=== PATIENT | female | born 2000 | race Caucasian/White ===

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

== ENCOUNTER 2020-06-07 06:32 | Emergency (ER) | payer OTHER, SELFPAY ==
[2020-06-07 06:36] VITALS: BP 156/93; PULSE 89; RESP 16; TEMP 36.3; O2SAT 98; BMI 36.3
--- NOTE | 2020-06-07 06:47 | XR_ITS ---
PROCEDURE: XR CHEST 2V CLINICAL HISTORY: cough COMPARISON: CR CXR CHEST(2 VIEWS-NOT PORTABLE) from 01/30/2010 CR CXR CHEST(2 VIEWS-NOT PORTABLE) from 12/25/2011 CR XR CHEST 2V from 05/11/[address] ANGIO CHEST from 05/17/2019 FINDINGS: The cardiomediastinal silhouette and pulmonary vascularity are within normal limits. The lungs are clear without infiltrates, suspicious nodules, or pleural effusions. No acute bony abnormalities. IMPRESSION: No acute findings. Dictated by: Dr. Sylvain Bustamante MD 06/07/2020 07:47 Dr. Sylvain Bustamante MD in [place] 06/07/2020 07:47
[2020-06-07 07:03] LABS: Microscopic, Urine URINE MICROSCOPIC (MICROSCOPIC)
[2020-06-07 07:12] LABS: Urine Pregnancy, HCG Qual. Negative (Negative)
[2020-06-07 07:14] LABS: Strep Scrn Group A (Rapid) Negative (Negative)
--- NOTE | 2020-06-07 07:17 | HMH.EDHA ---
ED Disposition Clinical Impression: Bronchitis Disposition: Home, Self-Care Condition on Discharge: Good Instructions: DI for Headache Additional Instructions: fluids and use meds and see pcp for follow up Prescriptions: predniSONE [Prednisone 20mg Tab] 20 mg PO BID #10 tab Transmission Status: Pending to [facility] Benzonatate [Tessalon Perle 100mg Cap] 100 mg PO TID #30 cap Transmission Status: Pending to [facility] Azithromycin [Zithromax 250mg tab] 250 mg PO DIRECTED #6 tab Transmission Status: P[facility] Referrals: Andrews De La Garza [Primary Care Provider] - - Critical Care Critical Care Time: No Attestation: On 06/07/20, the high probability of a clinically significant, sudden or life threatening deterioration of the following system(s) required my full and direct attention, intervention and personal management. The time I documented below is in addition to time spent performing reported procedures but includes the following listed in this critical care notation. Medical Decision Making - Medical Records Medical records reviewed: Yes: I reviewed the patient's medical records. - Kwan Inquiry Pt receiving controlled substance: No Vital Signs: 06/07/20 06:36 Temperature 97.4 F L Temperature Source Temporal Artery Scan Pulse Rate [Right Brachial] 89 Respiratory Rate 16 Blood Pressure [Right Arm] 156/93 H Blood Pressure Mean [Right Arm] 114 Blood Pressure Source [Right Arm] Automatic Cuff 02 Sat by Pulse Oximetry 98 Oxygen Delivery Method Room Air - Lab Data Lab results reviewed: Yes: I reviewed the patient's lab results. Lab Results 06/07/20 06:44: Urine Color Yellow, Urine Appearance Clear, Urine pH 7.0, Ur Specific [place] 1.020, Urine Protein Negative, Urine Glucose (UA) Negative, Urine Ketones Negative, Urine Blood Negative, Urine Nitrate Negative, Urine Bilirubin Negative, Urine Urobilinogen 0.2, Ur Leukocyte Esterase Negative, Urine RBC Occasional, Urine WBC 3-5, Ur Squamous Epith Cells 10-20, Urine Bacteria 2+ 06/07/20 06:44: Urine HCG, Qual Negative 06/07/20 06:44: Influenza Type A Ag Negative, Influenza Type B Ag Negative 06/07/20 06:44: Group A Strep Rapid Negative Orders (Tests/Meds): ED MEDICATIONS Generic Name Dose Route Start Last Admin Trade Name Freq PRN Reason Stop Dose Admin Sodium Chloride 1,000 mls @ 999 mls/hr 06/07/20 07:30 06/07/20 07:21 Sod Chlor 0.9% 1000ml Bag IV 06/07/20 08:30 999 mls/hr .Q1H1M JOSH Administration Discontinued Medications Generic Name Dose Route Start Last Admin Trade Name Veronica PRN Reason Stop Dose Admin Ketorolac Tromethamine 30 mg 06/07/20 07:19 06/07/20 07:21 Ketorolac 30mg/Ml Vial IV 06/07/20 07:20 30 mg ONCE ONE Administration Methylprednisolone Sodium Succinate 125 mg 06/07/20 07:19 06/07/20 07:21 Methylprednisolone Sod Succ 125mg Vial IV 06/07/20 07:20 125 mg ONCE ONE Administration ORDERS Category Date Time Status XR chest 2V Stat Exams 06/07/20 06:47 Taken CMP [Comprehensive Metabolic Panel] Stat Lab 06/07/20 07:29 Ordered Complete Blood Count Auto Diff Stat Lab 06/07/20 07:29 Ordered Strep Screen Confirmation Stat Micro 06/07/20 06:44 Received Urine Culture Stat Micro 06/07/20 06:44 Received - Radiology Data #1 Image(s): Chest Image Reviewed: Yes I reviewed the patient's radiology image Preliminary Findings: Normal/NAD Headache HPI - General Chief Complaint: Headache Stated Complaint: sore throat, cough, head hurts Time Seen by Provider: 06/07/20 07:00 Mode of Arrival: Ambulatory Source of Information: Patient, Medical Record Limitations: No Limitations Description of Symptoms (Recalled from ER Triage Doc. by RN): cough, sore throat, fever, doesn't feel well , headache since last night - History of Present Illness HPI Narrative: echocardiologist cough and sore throat with no known covid-19 exposure Complaint: h
[2020-06-07 07:27] LABS: Bacteria,Urine 2+ /lpf; RBC,Urine Occasional #/hpf (0-3)
[2020-06-07 07:28] LABS: Appearance,Urine CLEAR (Clear); Bilirubin,Urine Negative (Negative); Blood, Urine Negative (Negative); Color,Urine YELLOW (Yellow); Glucose,Urine (UA) Negative (Negative); Ketones,Urine Negative (Negative); Leukocyte Esterase,Urine Negative (Negative); Nitrate,Urine Negative (Negative); Protein,Urine Negative (Negative); Urobilinogen,Urine 0.2 EU/dl (0.2)
[2020-06-07 07:33] VITALS: BP 144/87; PULSE 93; O2SAT 96
[2020-06-07 07:38] LABS: Basophils # 0.1 K/mm3 (0-0.2); Basophils % 0.5 % (0.1-2.0); Eosinophils # 0.3 K/mm3 (0.0-0.4); Eosinophils % 2.9 % (0.1-12.0); Hematocrit 40.3 % (37.0-47.0); Hemoglobin 13.5 g/dL (12.2-16.2); Lymphocytes # 2.7 K/mm3 (0.7-4.5); Lymphocytes % 26.5 % (10-50); Mean Corpuscular HGB Conc 33.6 g/dL (31.8-35.4); Mean Corpuscular Hemoglobin 29.1 pg (27.0-31.2); Mean Corpuscular Volume 86.7 fl (81-99); Mean Platelet Volume 7.7 fl (7.4-10.4); Monocytes # 0.6 K/mm3 (0.1-1.0); Monocytes % 6.3 % (1.7-9.3); Neutrophils # 6.4 K/mm3 (1.8-7.8); Neutrophils % 63.8 % (37.0-80.0); Platelet Count 355 K/mm3 (142-424); Red Blood Count 4.65 M/mm3 (4.20-5.40); Red Cell Distribution Width 13.4 % (11.5-17.5); White Blood Count 10.1 K/mm3 (4.5-13.0)
[2020-06-07 07:41] VITALS: BP 148/88; PULSE 82; RESP 17; TEMP 36.6; O2SAT 96
[2020-06-07 07:41] LABS: Chloride 102 mmol/L (98-107); Potassium 3.8 mmoL/L (3.5-5.1); Sodium 139 mmol/L (136-145)
[2020-06-07 07:43] LABS: Alanine Aminotransferase 21 U/L (12-78); Aspartate Amino Transferase 23 U/L (14-36); Blood Urea Nitrogen 15 mg/dl (7-17); Creatinine Clearance Estimated 208 mL/min (50-200); Estimated Glomerular Filt Rate 108 ml/min (>60); GFR (African American) 130 ML/MIN (>60)
[2020-06-07 07:44] LABS: Albumin Level 4.5 g/dl (3.5-5.0); Albumin/Globulin Ratio 1.3 (1.1-1.8); Alkaline Phosphatase 85 U/L (38-126); Anion Gap 13.8 mEq/L (5-15); Bilirubin,Total 0.2 mg/dl (0.2-1.3); Calcium 9.7 mg/dl (8.4-10.2); Carbon Dioxide 27 mmol/L (22.0-30.0); Globulin 3.4 g/dL (1.3-3.2); Glucose 97 mg/dl (74-100); Total Protein,Serum 7.9 g/dl (6.3-8.2)
== END 2020-06-07 07:47 | disposition home or self-care (01) ==
PROVIDERS: Emergency Provider Emergency Medicine; PCP Internal Medicine
DX: J20.9 Acute bronchitis, unspecified (principal); F17.210 Nicotine dependence, cigarettes, uncomplicated
CPT/HCPCS: 71046; 80053; 81001; 81025; 85025; 87086; 87275; 87276; 87430; 96365; 99284

== ENCOUNTER 2022-02-05 13:50 | Inpatient (IN) | payer OTHER, SELFPAY ==
[2022-02-05 13:27] VITALS: BP 167/87; PULSE 108; RESP 22; TEMP 37.1; O2SAT 98; BMI 37.8
--- NOTE | 2022-02-05 14:23 | HMH.HP ---
*Admission Date: 02/05/22 *Chief complaint: Painful contractions, vaginal pressure, leakage of fluid *History of present illness: Ms Barbara Alcantara is a 21 yo at 34w4d per patient. Patient states her EMERALD is 03/15/22. She states she had 3 visits this . Two with Dr. Henriquez and one in [place]. However, we have no record of visits with Dr. Henriquez in the EMR. She states around [id number] she had sharp bilateral pelvic pain and then around 1255 she started leaking fluid. She reported cloudy fluid. She arrived to L&D and just made it to triage room when baby delivered at 1335. Baby did not show any signs of life and no pulse upon delivery. Baby was immediately taken to warmer for resuscitation. OB physician arrived. Fundal massage with gentle traction on umbilical cord was performed and placenta delivered spontaneously and intact. She was given IM Pitocin. Placenta will be sent to pathology for review. Placenta was stained with meconium, brown and green. Second degree perineal laceration was repaired with 3-0 vicryl. Hemostasis was noted. [facility] History I have reviewed the patient's past medical history: Yes *Have you ever received a pneumonia vaccine?: No *Have you received a flu vaccine this season?: No Other Surgeries: Yes: No Previous Surgery - *Social History Smoking Status: Current some day smoker Tobacco Type: cigarettes # Packs/Day (cigarettes): 1 Alcohol Intake: never Substance Use Type: denies use *Occupational Status:: other Housing: house Household Members: family *Travel in the last 8 weeks: None Family Hx:: No significant family history : 1 Para: 0 LMP comments: Review of Systems - Constitutional Denies fever(s), Denies headache(s) - Eyes Denies blurry vision, Denies change in vision - *Cardiovascular Denies chest pain, Denies shortness of breath, Denies leg swelling, Denies lightheadedness - *Respiratory Denies chest congestion, Denies cough, Denies shortness of breath - *Gastrointestinal Reports abdominal pain (cramping/contractions), Denies constipation, Denies loose stools, Denies nausea, Denies vomiting - *Genitourinary Reports other (leakage of fluid), Denies abnormal vaginal bleeding - *Musculoskeletal Denies muscle weakness, Denies body aches, Denies numbness - *Neurologic Denies dizziness, Denies headache(s) Meds Home Medications Medication Instructions Recorded Confirmed Type No Known Home Medications 02/05/22 02/05/22 History Allergies Allergy/AdvReac Type Severity Reaction Status Date / Time No Known Allergies Allergy Verified 03/23/19 13:13 Exam - Constitutional no acute distress, mild distress - *Routine HEENT Exam Head: Present: normocephalic, atraumatic Eye: Absent: conjunctivae pink ENT: Present: mucous membranes moist - *Routine Respiratory Exam Present: CTA bilaterally - *Routine Cardiovascular Exam Present: RRR - *Routine Abdominal Exam Present: soft. Absent: tenderness, distended - *Routine Rectal Exam Rectal:: deferred - *Routine Genitalia Exam Genitalia:: normal female - *Routine Extremities Exam Present: full ROM. Absent: edema, calf tenderness Assessment and Plan (1) Status: Acute Category: Medical Code(s): Z34.90 - Encounter for supervision of normal , unspecified, unspecified trimester (2) No care in current Status: Acute Category: Medical Code(s): O09.30 - Supervision of with insufficient care, unspecified trimester (3) Precipitous delivery Status: Acute Category: Medical Code(s): O62.3 - Precipitate labor (4) Delivery outcome of stillborn Status: Acute Category: Medical Code(s): Z37.1 - Single stillbirth - Assessment and plan all Dx Assessment and Plan for all problems:: Admit to L&D for routine care Prophylactic antibiotics x 24 hours Placenta will be sent to pathology
[2022-02-05 17:00] VITALS: BMI 37.8
[2022-02-05 18:21] LABS: Basophils # 0.1 K/mm3 (0-0.2); Basophils % 0.1 % (0.1-2.0); Eosinophils % 0.1 % (0.1-12.0); Hematocrit 31.1 % (37.0-47.0); Hemoglobin 10.5 g/dL (12.2-16.2); Lymphocytes # 0.7 K/mm3 (0.7-4.5); Lymphocytes % 1.7 % (10-50); Mean Corpuscular HGB Conc 33.6 g/dL (31.8-35.4); Mean Corpuscular Volume 83.3 fl (81-99); Mean Platelet Volume 8.1 fl (7.4-10.4); Monocytes # 1.3 K/mm3 (0.1-1.0); Monocytes % 3.5 % (1.7-9.3); Neutrophils % 94.5 % (37.0-80.0); Platelet Count 328 K/mm3 (142-424); Red Blood Count 3.74 M/mm3 (4.20-5.40); Red Cell Distribution Width 13.8 % (11.5-17.5)
[2022-02-05 18:24] LABS: MANUAL DIFFERENTIAL MANUAL DIFFERENTIAL (MANUAL DIFF)
[2022-02-05 19:26] LABS: Lymphocytes % 5 % (10-50); Monocytes % 2 % (2-9); Neutrophils % 92 % (42-76); Platelet Estimate Normal; RBC Morphology Normal; Total Cells Counted 100
[2022-02-05 20:00] VITALS: BP 144/95; PULSE 79; RESP 20; TEMP 36.9; O2SAT 98
[2022-02-05 22:23] LABS: Coronavirus 19, PCR Not Detected (NotDetected); Influenza A, PCR Not Detected (NotDetected); Influenza B, PCR Not Detected (NotDetected)
[2022-02-05 23:53] LABS: Microscopic, Urine URINE MICROSCOPIC (MICROSCOPIC)
[2022-02-05 23:57] LABS: Appearance,Urine CLEAR (Clear); Bilirubin,Urine Negative (Negative); Blood, Urine 3+ (Negative); Color,Urine YELLOW (Yellow); Glucose,Urine (UA) Negative (Negative); Ketones,Urine Negative (Negative); Leukocyte Esterase,Urine 2+ (Negative); Nitrate,Urine Negative (Negative); Protein,Urine TRACE (Negative); Specific Gravity, Urine <= 1.005 (1.005-1.030); Urobilinogen,Urine 0.2 EU/dl (0.2)
[2022-02-06] VITALS: BP 133/77; PULSE 95; RESP 18; TEMP 36.7; O2SAT 99
[2022-02-06 00:10] LABS: Barbiturates Screen,Urine Negative ng/ml (<200)
[2022-02-06 00:11] LABS: Amphetamine/Metha Screen,Urine Negative ng/ml (<1000); Benzodiazepines Screen,Urine Negative ng/ml (<200)
[2022-02-06 00:12] LABS: Cannabinoid Screen,Urine Negative ng/ml (<50)
[2022-02-06 00:13] LABS: Cocaine Screen,Urine Negative ng/ml (<300); Methadone Screen,Urine Negative ng/ml (<300)
[2022-02-06 00:14] LABS: Bacteria,Urine 1+ /lpf; Opiate Screen,Urine Negative ng/ml (<300)
[2022-02-06 00:15] LABS: Phencyclidine Screen,Urine Negative ng/ml (<25)
[2022-02-06 08:15] VITALS: BP 128/77; PULSE 84; RESP 18; TEMP 36.9; O2SAT 98
[2022-02-06 08:15] LABS: Basophils % 0.1 % (0.1-2.0); Eosinophils # 0.1 K/mm3 (0.0-0.4); Eosinophils % 0.4 % (0.1-12.0); Hematocrit 28.9 % (37.0-47.0); Lymphocytes # 2.4 K/mm3 (0.7-4.5); Lymphocytes % 7.5 % (10-50); Mean Corpuscular HGB Conc 34.5 g/dL (31.8-35.4); Mean Corpuscular Hemoglobin 27.7 pg (27.0-31.2); Mean Corpuscular Volume 80.3 fl (81-99); Mean Platelet Volume 7.1 fl (7.4-10.4); Monocytes # 1.3 K/mm3 (0.1-1.0); Neutrophils # 28.3 K/mm3 (1.8-7.8); Platelet Count 354 K/mm3 (142-424); Red Blood Count 3.59 M/mm3 (4.20-5.40); Red Cell Distribution Width 13.9 % (11.5-17.5); White Blood Count 32.1 K/mm3 (4.8-10.8)
[2022-02-06 08:16] LABS: MANUAL DIFFERENTIAL MANUAL DIFFERENTIAL (MANUAL DIFF)
[2022-02-06 10:15] LABS: Lymphocytes % 11 % (10-50); Monocytes % 2 % (2-9); Neutrophils % 86 % (42-76); Total Cells Counted 100
[2022-02-06 10:18] LABS: Platelet Estimate Normal; RBC Morphology Normal
--- NOTE | 2022-02-06 13:28 | HMH.OBDCSM ---
General - General Admission date:: 02/05/22 Discharge date: 02/06/22 HPI - History of Present Illness History of present illness: PPD # 1 s/p of stillborn baby Patient is doing okay. She admits to light lochia. Denies fever/chills, chest pain and shortness of breath. Denies pain. Denies headache, vision changes and swelling. She is sad and tearful. Hospital Course Hospital Course: Patient was admitted to [facility] Labor and Delivery on 02/05/22 after precipitous delivery upon arrival. She delivered a stillborn boy 8 lb 4 oz, APGARs were 0, 0. No cardiac activity. No signs of life upon delivery. EBL was 300 mL. Placenta delivered spontaneously and intact. Chorioamnionitis was suspected with malodorous fluid and thick brown/green meconium. Patient was treated with IV Unasyn for 24 hours after delivery. Vital signs were stable, afebrile. WBC was 37,000. PPD #1 She was doing okay. She was sad and tearful. Reported decreased lochia. She was urinating without difficulty. Passing flatus. Pain was controlled. She had no nausea, vomiting, fever/chills, chest pain or shortness of breath. Vitals were stable. Heart was regular rate and rhythm. Lungs were clear to auscultation. Abdomen was soft, nontender, uterine fundus firm and below umbilicus. Extremities were non-edematous and she had no calf tenderness to palpation. She was transitioned to oral antibiotics for 5 days. She was started on sertraline 50 mg PO daily. Patient desires discharge to home. Rhogam Administration: Not Indicated Objective Vital signs: Temp Pulse Resp BP Pulse Ox 98.5 F 84 18 128/77 98 02/06/22 08:15 02/06/22 08:15 02/06/22 08:15 02/06/22 08:15 02/06/22 08:15 Comments: tearful and sad - *Routine HEENT Exam Head: Present: normocephalic, atraumatic Eye: Absent: conjunctivae pink ENT: Present: mucous membranes moist - *Routine Respiratory Exam Present: CTA bilaterally - *Routine Cardiovascular Exam Present: RRR - *Routine Abdominal Exam Present: soft, normoactive bowel sounds. Absent: tenderness, distended - *Routine Rectal Exam Patient deferred: visual exam - *Routine Exam Patient deferred: external exam - *Routine Extremities Exam Present: full ROM. Absent: edema, calf tenderness - *Routine Neurological Exam Present: alert, oriented X3 Results Labs on day of discharge: Labs from last 24 hours 02/06/22 02/05/22 02/05/22 07:45 22:13 21:30 WBC 32.1 H* RBC 3.59 L Hgb 10.0 L Hct 28.9 L MCV 80.3 L MCH 27.7 MCHC 34.5 RDW 13.9 Plt Count 354 MPV 7.1 L Neut % (Auto) 88.0 H Lymph % (Auto) 7.5 L [place] % (Auto) 4.0 Eos % (Auto) 0.4 Baso % (Auto) 0.1 Neut # (Auto) 28.3 H Lymph # (Auto) 2.4 [place] # (Auto) 1.3 H Eos # (Auto) 0.1 Baso # (Auto) 0.0 Total Counted 100 Neutrophils % (Manual) 86 H Band Neutrophils % 1.0 Lymphocytes % (Manual) 11 Monocytes % (Manual) 2 Platelet Estimate Normal RBC Morphology Normal Urine Color Urine Appearance Urine pH Ur Specific [place] Urine Protein Urine Glucose (UA) Urine Ketones Urine Blood Urine Nitrate Urine Bilirubin Urine Urobilinogen Ur Leukocyte Esterase Urine RBC Urine WBC Ur Squamous Epith Cells Urine Bacteria Urine Opiates Screen Negative Urine Methadone Screen Negative Ur Barbituates Screen Negative Ur Phencyclidine Scrn Negative Ur Amphetamines Screen Negative U Benzodiazepines Scrn Negative Urine Cocaine Screen Negative U Marijuana (THC) Screen Negative SARS-CoV-2 (PCR) Not detected Influenza A Untype (PCR) Not detected Influenza Type B (PCR) Not detected Blood Type Antibody Screen Screen Baby's Rh Status Rhogam Infusion KB Hemoglobin 02/05/22 02/05/22 02/05/22 21:30 14:00 14:00 WBC 37.0 H* RBC 3.74 L Hgb 10.5 L Hct 31.1 L
== END 2022-02-06 14:50 | disposition home or self-care (01) | DRG 807 ==
LOC: OBOUT 02-21 10:16 → OB 02-21 10:16
PROVIDERS: Admitting Provider Obstetrics & Gynecology; PCP Internal Medicine; Visit Provider Obstetrics & Gynecology
DX: O36.4XX0 Maternal care for intrauterine death, not applicable or unspecified (principal); Z37.1 Single stillbirth; Z3A.34 34 weeks gestation of pregnancy; O70.1 Second degree perineal laceration during delivery; O69.1XX0 Labor and delivery complicated by cord around neck, with compression, not applicable or unspecified
CPT/HCPCS: 59409; 36415; 80305; 80306; 81001; 85007; 85025; 86850; 87086; 88307; C9803; U0003; U0005

== ENCOUNTER → 2022-02-08 14:33 | Outpatient (CLI) | payer OTHER, SELFPAY ==
[2022-02-08 15:13] LABS: Basophils # 0.1 K/mm3 (0-0.2); Basophils % 0.6 % (0.1-2.0); Eosinophils # 0.5 K/mm3 (0.0-0.4); Eosinophils % 3.1 % (0.1-12.0); Hematocrit 31.8 % (37.0-47.0); Lymphocytes # 2.1 K/mm3 (0.7-4.5); Lymphocytes % 13.7 % (10-50); Mean Corpuscular HGB Conc 31.3 g/dL (31.8-35.4); Mean Corpuscular Hemoglobin 27.1 pg (27.0-31.2); Mean Corpuscular Volume 86.7 fl (81-99); Mean Platelet Volume 7.7 fl (7.4-10.4); Monocytes # 0.6 K/mm3 (0.1-1.0); Neutrophils # 12.2 K/mm3 (1.8-7.8); Neutrophils % 78.6 % (37.0-80.0); Platelet Count 458 K/mm3 (142-424); Red Blood Count 3.67 M/mm3 (4.20-5.40); Red Cell Distribution Width 14.6 % (11.5-17.5); White Blood Count 15.6 K/mm3 (4.8-10.8)
[2022-02-08 15:17] LABS: MANUAL DIFFERENTIAL MANUAL DIFFERENTIAL (MANUAL DIFF)
[2022-02-08 16:23] LABS: Eosinophils % 3 % (0-3); Hypochromasia 1+; Lymphocytes % 17 % (10-50); Monocytes % 5 % (2-9); Neutrophils % 75 % (42-76); Total Cells Counted 100
[2022-02-08 16:25] LABS: Platelet Estimate Normal
== END ==
PROVIDERS: PCP Internal Medicine; Visit Provider Obstetrics & Gynecology
DX: N92.0 Excessive and frequent menstruation with regular cycle (principal)
CPT/HCPCS: 36415; 85007; 85025

== ENCOUNTER 2022-02-09 09:58 | Emergency (ER) | payer OTHER, SELFPAY ==
[2022-02-09 10:06] VITALS: BP 177/112; PULSE 72; RESP 18; TEMP 36.4; O2SAT 97; BMI 38.6
--- NOTE | 2022-02-09 10:15 | ECG_ITS ---
APPROVED REPORT Exam: Resting ECG HR:82 bpm ECG Measurements Heart Rate 82 AXES RI 147 P 53 QRSd 97 QRS 19 QT 350 T 20 QTc 389 Conclusion SINUS RHYTHM INCOMPLETE RIGHT BUNDLE BRANCH BLOCK [90+ ms QRS DURATION, TERMINAL R IN V1/V2, 40+ ms S IN I/aVL/V4/V5/V6] BORDERLINE ECG UNCONFIRMED REPORT Electronically signed by : Ry Jefferson MD 02/11/2022 21:33:24
--- NOTE | 2022-02-09 10:23 | HMH.EDUTC ---
[facility] [place] Disposition Clinical Impression: Hypertension Qualifiers: Hypertension type: unspecified Qualified Code(s): I10 - Essential (primary) hypertension Disposition: Home, Self-Care Condition on Discharge: Good Instructions: Essential Hypertension Additional Instructions: Take the medications as directed. Follow up with your regular doctor. GO TO THE ER FOR ANY WORSENING SYMPTOMS Go from sitting to standing slowly after starting the bisopropol. It can cause you to get dizzy when standing up until your body gets used to it. Prescriptions: Bisoprolol Fumarate [Bisoprolol 5mg Tablet] 5 mg PO DAILY #30 tab Transmission Status: Received by [facility] Referrals: Andrews De La Garza MD [Primary Care Provider] - Time of Disposition: 10:34 Medical Decision Making - Medical Records Medical records reviewed: No: I reviewed the patient's medical records. - Kwan Inquiry Pt receiving controlled substance: No Vital Signs: 02/09/22 10:06 02/09/22 10:41 Temperature 97.5 F L 97.5 F L Temperature Source Oral Pulse Rate 72 Pulse Rate [Left] 72 Respiratory Rate 18 18 Blood Pressure 177/112 H Blood Pressure [Right Arm] 177/112 H Blood Pressure Mean [Right Arm] 133 02 Sat by Pulse Oximetry 97 Orders (Tests/Meds): ED MEDICATIONS Discontinued Medications Generic Name Dose Route Start Last Admin Trade Name Freq PRN Reason Stop Dose Admin Bisoprolol Fumarate 5 mg 02/10/22 09:00 Bisoprolol 5mg Tablet PO 03/12/22 08:59 DAILY JOSH - ECG Data Tracing #1 ECG initial impression date: 02/09/22 ECG initial impression time: 10:48 ECG normal with no acute: arrhythmias, ischemia, conduction abnormalities, chamber hypertrophy Normal Sinus Rhythm: Yes [facility] [place] HPI - General Stated complaint: elevated bp Time Seen by Provider: 02/09/22 10:23 Description of Symptoms (Recalled from Triage Doc. by RN): patient comes in for a blood pressure check. when blood pressure checked it was 177/112. patient was asked to check in to be seen. patient had stillborn on 02/05. pt states that she has been having headaches for the past two days. HEENT Symptoms (Recalled from RN notes): No Resp Symptoms (Recalled from RN notes): No Skin Symptoms (Recalled from RN notes): No MS Symptoms (Recalled from RN notes): No Functional Status (Recalled from RN notes): wnl - History of Present Illness Provider Complaint: She has a history of hypertension. She has been up until having a still yesterday. During her her blood pressure did good without blood pressure medicine, so she has been off of it for a period of time. Since she had the still yesterday, she has had blood pressures running in the 180s/100s, She has been having a throbbing headache. She was around 37 weeks before she had the still . She states that she was told the still is due to an infection, but her publishing agent doesn't know the souce of the infection. She has been getting daily cbc's and her wbc is down to 15,000 now. She was on bisopropol for her blood pressure and she states that she did well with that medication. She would like to be restarted on that medication and f/u with her pcp next week. - Related Data Previous Rx's Medication Instructions Recorded Amoxicillin [Amoxicillin 500mg 500 mg PO Q8H #12 cap 02/06/22 Cap] Ibuprofen [Motrin 400mg 800 mg PO Q8HP PRN #20 tab 02/06/22 tablet] Sertraline HCl [Zoloft 50mg tablet] 50 mg PO DAILY #30 tab 02/06/22 metroNIDAZOLE [metroNIDAZOLE 500mg 500 mg PO TID #12 tab 02/06/22 Tablet] Bisoprolol Fumarate [Bisoprolol 5 mg PO DAILY #30 tab 02/09/22 5mg Tablet] Allergies Allergy/AdvReac Type Severity Reaction Status Date / Time No Known Allergies Allergy Verified 03/23/19 13:13 - Worker's Comp Is this a Worker's Comp case?: No [facility] History - Hepatitis A Screen Attestation statement:: This patient has been scre
[2022-02-09 10:41] VITALS: BP 177/112; PULSE 72; RESP 18; TEMP 36.4
== END 2022-02-09 10:42 | disposition home or self-care (01) ==
PROVIDERS: Emergency Provider Nurse Practitioner Family; PCP Internal Medicine
DX: O16.5 Unspecified maternal hypertension, complicating the puerperium (principal)
CPT/HCPCS: 93005; 99212; G0463

== ENCOUNTER 2022-02-09 20:14 | Outpatient (CLI) | payer OTHER, SELFPAY ==
[2022-02-09] VITALS (8 sets, daily range): BP systolic 141–163; BP diastolic 70–105; PULSE 69–79; RESP 18; TEMP 37.1; O2SAT 98; BMI 51.2
--- NOTE | 2022-02-09 20:50 | PC.NURSE ---
PT ARRIVED TO UNIT C/O ELEVATED B/P,SWELLING OF FEET AND HEADACHE.B/P WAS 152/70 MANUALLY,UA AND UDS OBTAINED ON ARRIVAL,SWELLING 1+ PITTING EDEMA IN FEET AND LOWER LEGS.DTR'S NORMAL,PT DENIES ANY BLURRED VISION,PT HAD A STILLBIRTH ON 02/05 AND THE WAS TODAY.IV STARTED PER S.CALL,RN AND LABS DRAWN FOR PIH,PT TOLERATED WELL20 GAUGE IN RAC.
[2022-02-09 21:01] LABS: Appearance,Urine SL CLOUDY (Clear); Bilirubin,Urine Negative (Negative); Blood, Urine 3+ (Negative); Color,Urine YELLOW (Yellow); Glucose,Urine (UA) Negative (Negative); Ketones,Urine Negative (Negative); Leukocyte Esterase,Urine 2+ (Negative); Microscopic, Urine URINE MICROSCOPIC (MICROSCOPIC); Nitrate,Urine Negative (Negative); Protein,Urine Negative (Negative); Urobilinogen,Urine 0.2 EU/dl (0.2)
[2022-02-09 21:04] LABS: Squamous Epithelial Cell,Urine Occasional #/hpf (0-5)
--- NOTE | 2022-02-09 21:30 | PC.NURSE ---
GAYLE LR HUNG AT THIS TIME
--- NOTE | 2022-02-09 21:30 | PC.NURSE ---
NOTIFIED OF PT ARRIVAL AND C/O ELEVATED B/P,SWELLING IN LOWER LEGS AND HEADACHE.INFORMED OF THE SITUATION OF STILLBIRTH ON 02/05 AND THE WAS TODAY.B/P OF 152/70 MANUALLY.TOLD HER THAT AN IV WAS STARTED AND LABS DRAWN FOR PIH AND SHE SAID THAT WAS FINE.INFORMED OF UA 2+ LEUKS,3 + BLOOD,NEG.PROTEIN,SHE SAID TO BOLUS HER A LITER OF LR AND GIVE HER HYDRALOZINE 5MG IV NOW.
--- NOTE | 2022-02-09 21:55 | PC.NURSE ---
HYDRALOZINE 5MG IV GIVEN.VERIFIED WITH STUART STEELE
[2022-02-09 22:00] LABS: Basophils # 0.1 K/mm3 (0-0.2); Basophils % 0.5 % (0.1-2.0); Eosinophils # 0.4 K/mm3 (0.0-0.4); Eosinophils % 2.2 % (0.1-12.0); Hematocrit 30.7 % (37.0-47.0); Hemoglobin 10.6 g/dL (12.2-16.2); Lymphocytes # 2.7 K/mm3 (0.7-4.5); Lymphocytes % 14.5 % (10-50); Mean Corpuscular HGB Conc 34.4 g/dL (31.8-35.4); Mean Corpuscular Hemoglobin 27.7 pg (27.0-31.2); Mean Corpuscular Volume 80.4 fl (81-99); Monocytes # 1.1 K/mm3 (0.1-1.0); Monocytes % 6.1 % (1.7-9.3); Neutrophils # 14.2 K/mm3 (1.8-7.8); Neutrophils % 76.8 % (37.0-80.0); Platelet Count 437 K/mm3 (142-424); Red Blood Count 3.82 M/mm3 (4.20-5.40); Red Cell Distribution Width 13.8 % (11.5-17.5); White Blood Count 18.5 K/mm3 (4.8-10.8)
[2022-02-09 22:04] LABS: Alanine Aminotransferase 28 U/L (12-78); Anion Gap 9.8 mEq/L (5-15); Aspartate Amino Transferase 35 U/L (14-36); Blood Urea Nitrogen 10 mg/dl (7-17); Carbon Dioxide 27 mmol/L (22.0-30.0); Chloride 104 mmol/L (98-107); Creatinine Clearance Estimated 110 mL/min (50-200); D-Dimer 2.54 ug/mL (0.0-0.5); Estimated Glomerular Filt Rate 106 ml/min (>60); GFR (African American) 128 ML/MIN (>60); Glucose 81 mg/dl (74-100); Potassium 3.8 mmoL/L (3.5-5.1); Sodium 137 mmol/L (136-145); Uric Acid 5.7 mg/dl (2.5-6.2)
[2022-02-09 22:06] LABS: MANUAL DIFFERENTIAL MANUAL DIFFERENTIAL (MANUAL DIFF)
--- NOTE | 2022-02-09 22:30 | PC.NURSE ---
PT REPORTS FEELING BETTER,HEADACHE GONE AND SHE NEEDS TO GO TO BATHROOM,PT ASSISTED WITH IV BAG
[2022-02-09 22:34] LABS: Eosinophils % 2 % (0-3); Hypochromasia 1+; Lymphocytes % 23 % (10-50); Monocytes % 8 % (2-9); Neutrophils % 67 % (42-76); Platelet Estimate Normal; Total Cells Counted 100
[2022-02-09 22:35] LABS: Microcytosis 1+
[2022-02-09 22:54] LABS: Activated Partial Thrombo Time 21.1 seconds (22.8-30.6); Fibrinogen 506 mg/dL (229.9-363.5); INR 0.81 (0.9-1.1); Prothrombin Time 9.3 seconds (10.1-12.5)
--- NOTE | 2022-02-09 23:05 | PC.NURSE ---
NOTIFIED OF PTS LAB RESULTS AND THAT THE PT WAS FEELING BETTER,NO HEADACHE NOW.AND READ THE LAST FEW B/P OFF TO HER.TOLD HER THAT THE PT HAD REPORTED SHE WAS ON BISOPROLOL FOR CHRONIC B/P PRIOR TO PREGENCY,KEON SAID THE LABS RESULTS SEEMED TO BE CHRONIC HYPERTENSION AND NOT PIH,HAVE PT FOLLOW UP WITH PRIMARY DOCTOR ABOUT B/P
== END 2022-02-09 23:30 | disposition home or self-care (01) ==
LOC: OBOUT 20:18 → OB 20:20
PROVIDERS: PCP Internal Medicine; Visit Provider Obstetrics & Gynecology
DX: I10 Essential (primary) hypertension (principal); R51.9 Headache, unspecified; R60.0 Localized edema; F53.0 Postpartum depression; Z37.1 Single stillbirth
CPT/HCPCS: 80048; 81001; 84450; 84460; 84550; 85007; 85025; 85378; 85384; 85610; 85730; 87086; 87088; 87186; 96365; G0463

== ENCOUNTER → 2022-03-26 16:46 | Outpatient (CLI) | payer OTHER, SELFPAY ==
[2022-03-26 17:12] LABS: Microscopic, Urine URINE MICROSCOPIC (MICROSCOPIC)
[2022-03-26 17:28] LABS: Appearance,Urine SL CLOUDY (Clear); Bilirubin,Urine Negative (Negative); Blood, Urine 1+ (Negative); Color,Urine YELLOW (Yellow); Glucose,Urine (UA) Negative (Negative); Ketones,Urine Negative (Negative); Leukocyte Esterase,Urine 1+ (Negative); Nitrate,Urine Negative (Negative); Protein,Urine Negative (Negative); Specific Gravity, Urine >= 1.030 (1.005-1.030); Urobilinogen,Urine 0.2 EU/dl (0.2)
[2022-03-26 17:36] LABS: RBC,Urine Occasional #/hpf (0-3)
[2022-03-26 17:37] LABS: Bacteria,Urine 1+ /lpf
[2022-03-26 17:47] LABS: Anion Gap 16.5 mEq/L (5-15); Blood Urea Nitrogen 13 mg/dl (7-17); Calcium 9.9 mg/dl (8.4-10.2); Carbon Dioxide 23 mmol/L (22.0-30.0); Chloride 104 mmol/L (98-107); Estimated Glomerular Filt Rate 106 ml/min (>60); GFR (African American) 128 ML/MIN (>60); Glucose 95 mg/dl (74-100); Potassium 4.5 mmoL/L (3.5-5.1); Sodium 139 mmol/L (136-145)
== END ==
PROVIDERS: PCP Internal Medicine; Visit Provider Internal Medicine
DX: N39.0 Urinary tract infection, site not specified (principal); I10 Essential (primary) hypertension; F43.21 Adjustment disorder with depressed mood; Z63.4 Disappearance and death of family member
CPT/HCPCS: 80048; 81001; 87086

== ENCOUNTER → 2022-07-08 15:37 | Outpatient (CLI) | payer OTHER, SELFPAY | PROVIDERS: PCP Internal Medicine; Visit Provider Obstetrics & Gynecology | DX: Z32.01 Encounter for pregnancy test, result positive (principal) | CPT/HCPCS: 36415; 84702 ==

== ENCOUNTER → 2022-07-18 10:12 | Outpatient (CLI) | payer OTHER, SELFPAY ==
[2022-07-18 10:38] LABS: Basophils % 0.4 % (0.1-2.0); Eosinophils # 0.2 K/mm3 (0.0-0.4); Eosinophils % 1.8 % (0.1-12.0); Hematocrit 34.5 % (37.0-47.0); Hemoglobin 11.4 g/dL (12.2-16.2); Lymphocytes # 1.4 K/mm3 (0.7-4.5); Mean Corpuscular HGB Conc 33.1 g/dL (31.8-35.4); Mean Corpuscular Hemoglobin 26.2 pg (27.0-31.2); Mean Platelet Volume 7.8 fl (7.4-10.4); Monocytes # 0.3 K/mm3 (0.1-1.0); Monocytes % 3.8 % (1.7-9.3); Neutrophils # 6.2 K/mm3 (1.8-7.8); Neutrophils % 76.9 % (37.0-80.0); Platelet Count 347 K/mm3 (142-424); Red Blood Count 4.37 M/mm3 (4.20-5.40)
[2022-07-18 16:27] LABS: Amphetamine/Metha Screen,Urine Negative ng/ml (<1000)
[2022-07-18 16:28] LABS: Barbiturates Screen,Urine Negative ng/ml (<200)
[2022-07-18 16:29] LABS: Benzodiazepines Screen,Urine Negative ng/ml (<200); Cannabinoid Screen,Urine Positive ng/ml (<50)
[2022-07-18 16:30] LABS: Cocaine Screen,Urine Negative ng/ml (<300)
[2022-07-18 16:31] LABS: Methadone Screen,Urine Negative ng/ml (<300); Opiate Screen,Urine Negative ng/ml (<300)
[2022-07-18 16:32] LABS: Phencyclidine Screen,Urine Negative ng/ml (<25)
[2022-07-19 06:10] LABS: Rubella Antibodies, IgG <0.90 index (Immune >0.99)
[2022-07-19 12:03] LABS: Rapid Plasma Reagin Ab Titer Non Reactive (NonRea<1:1)
[2022-07-27 22:38] LABS: HIV Screen 4th Generation wRfx NON REACTIVE; Hepatitis B Surface Antigen NEGATIVE; Hepatitis C Antibody <0.1
== END ==
LOC: LAB 11:00 → LAB.DROPOF 13:26
PROVIDERS: PCP Internal Medicine; Visit Provider Obstetrics & Gynecology
DX: Z34.90 Encounter for supervision of normal pregnancy, unspecified, unspecified trimester (principal)
CPT/HCPCS: 36415; 80305; 85025; 86592; 86703; 86762; 86850; 87086; 87088; 87186; 87340; 87380; G0432

== ENCOUNTER 2022-08-30 19:33 | Emergency (ER) | payer OTHER, SELFPAY ==
[2022-08-30 19:34] VITALS: BP 131/74; PULSE 99; RESP 16; TEMP 36.7; O2SAT 100; BMI 46.3
[2022-08-30 19:46] LABS: Microscopic, Urine URINE MICROSCOPIC (MICROSCOPIC)
--- NOTE | 2022-08-30 19:54 | PC.NURSE ---
Registration called back to inform us that hazel spivey is in the lobby. Pt advised she would like her mother to remain back with her at this time.
[2022-08-30 20:01] LABS: Appearance,Urine CLEAR (Clear); Bilirubin,Urine Negative (Negative); Blood, Urine Negative (Negative); Color,Urine YELLOW (Yellow); Glucose,Urine (UA) Negative (Negative); Ketones,Urine 2+ (Negative); Leukocyte Esterase,Urine Negative (Negative); Nitrate,Urine Negative (Negative); PH,Urine 6.5 (5.0-8.5); Protein,Urine Negative (Negative); Urobilinogen,Urine 0.2 EU/dl (0.2)
--- NOTE | 2022-08-30 20:05 | PC.NURSE ---
FHR [id number]
[2022-08-30 20:09] LABS: Basophils # 0.1 K/mm3 (0-0.2); Basophils % 0.5 % (0.1-2.0); Chloride 105 mmol/L (98-107); Eosinophils # 0.3 K/mm3 (0.0-0.4); Eosinophils % 2.1 % (0.1-12.0); Hematocrit 34.7 % (37.0-47.0); Hemoglobin 11.8 g/dL (12.2-16.2); Lymphocytes # 1.8 K/mm3 (0.7-4.5); Lymphocytes % 15.3 % (10-50); Mean Corpuscular Hemoglobin 27.8 pg (27.0-31.2); Mean Corpuscular Volume 81.9 fl (81-99); Mean Platelet Volume 7.7 fl (7.4-10.4); Monocytes # 0.4 K/mm3 (0.1-1.0); Monocytes % 3.2 % (1.7-9.3); Neutrophils # 9.4 K/mm3 (1.8-7.8); Platelet Count 382 K/mm3 (142-424); Red Blood Count 4.24 M/mm3 (4.20-5.40); Red Cell Distribution Width 16.5 % (11.5-17.5); White Blood Count 11.9 K/mm3 (4.8-10.8)
[2022-08-30 20:10] LABS: Potassium 3.7 mmoL/L (3.5-5.1); Sodium 135 mmol/L (136-145)
[2022-08-30 20:12] LABS: Alanine Aminotransferase 20 U/L (12-78); Alkaline Phosphatase 71 U/L (38-126); Amylase 71 U/L (30-110); Anion Gap 10.7 mEq/L (5-15); Aspartate Amino Transferase 20 U/L (14-36); Bilirubin,Total 0.2 mg/dl (0.2-1.3); Blood Urea Nitrogen 9 mg/dl (7-17); Calcium 8.7 mg/dl (8.4-10.2); Carbon Dioxide 23 mmol/L (22.0-30.0); Creatinine Clearance Estimated 128 mL/min (50-200); Estimated Glomerular Filt Rate 126 ml/min (>60); GFR (African American) 153 ML/MIN (>60); Glucose 104 mg/dl (74-100); Lipase 65 U/L (23-300)
[2022-08-30 20:13] LABS: Albumin/Globulin Ratio 1.2 (1.1-1.8); Globulin 3.4 g/dL (1.3-3.2); Total Protein,Serum 7.4 g/dl (6.3-8.2)
[2022-08-30 20:13] LABS: Amorphous Sediment,Urine Trace /lpf; Bacteria,Urine 1+ /lpf; WBC,Urine Occasional #/hpf (0-3)
--- NOTE | 2022-08-30 20:22 | HMH.EDABDPAI ---
Discharge Plan Disposition Patient Disposition: Home, Self-Care Chief Complaint: Abdominal Pain Prescriptions Prescriptions: No Action sertraline 50 mg tablet 50 mg PO DAILY Qty: 30 2RF Natavi PNV 13.5 mg iron- 0.5 mg-150 mg capsule 1 cap PO DAILY Qty: 60 3RF aspirin [Adult Low Dose Aspirin] 81 mg tablet,delayed release (DR/EC) 81 mg PO DAILY labetalol 100 mg tablet 100 mg PO DAILY Label Comments: Patient takes 1/2 tablet daily Referrals Follow up/Referrals: Andrews De La Garza MD [Primary Care Provider] - See instructions Clinical Impressions Clinical Impression: Abdominal pain, Instructions Patient Instructions: DI for Acute Abdominal Pain Discharge ED Provider: Taz Garrett Abdominal Pain HPI General Chief Complaint: Abdominal Pain Stated Complaint: 16 WK Pres with back pain&Left side Time Seen by Provider: 08/30/22 20:22 Mode of Arrival: Ambulatory Source of Information: Patient and Medical Record Limitations: No Limitations Description of Symptoms (Recalled from ER Triage Doc. by RN): pt c/o lt abd pain that started a hour ago. pt states she is currently 16 weeks History of Present Illness HPI narrative: acute onset of lt sided abd pain - no fever/rash or trauma - no vag bleeding - 16 weeks complaint: abdominal pain Onset (ago): hour(s) Consistency: intermittent Location: LUQ and LLQ Severity: moderate Associated symptoms: denies other symptoms Related Data LMP (females 10-50): Home Medications Medication Instructions Recorded Confirmed aspirin 81 mg tablet,delayed 81 mg PO DAILY 08/15/22 08/16/22 release (Adult Low Dose Aspirin) labetalol 100 mg tablet 100 mg PO DAILY 08/15/22 08/16/22 Previous Rx's Medication Instructions Recorded PNV 158-iron 13.5 mg-folic 0.5 1 cap PO DAILY #60 caps 07/18/22 mg-omega 3-dha 150 mg-epa-fish capsule (Natavi PNV) sertraline 50 mg tablet 50 mg PO DAILY #30 tabs 07/18/22 Allergies Allergy/AdvReac Type Severity Reaction Status Date / Time No Known Allergies Allergy Verified 08/16/22 11:44 [facility] Disclaimer: The information contained in this section may have been updated after the patient was seen, as this information can be updated by other users. Medical History Hypertension affecting , antepartum Maternal obesity affecting , antepartum Morbid obesity with BMI of 45.0-49.9, adult Rubella non-immune status, antepartum Screening for genetic disease carrier status 07/26/22 - [facility] carrier screen negative for 14 conditions tested including CF, Fragile X, SMA and hemoglobinopathies Tobacco use affecting , antepartum Social History Smoking Status: Current every day smoker tobacco type: cigarettes packs per day: 1 second hand exposure: No alcohol intake: never substance use type: denies use current occupational status: employed Travel in the last 8 weeks: None household members: family housing: house ROS Obtained: Yes All systems reviewed & no additional complaints except as documented Physical Exam General General appearance: alert Head Head exam: normocephalic Eye Eye exam: Present PERRL and EOMI ENT ENT exam: Present mucous membranes moist Neck Neck exam: Present trachea midline Respiratory Respiratory exam: Present normal lung sounds bilaterally; Absent respiratory distress Cardiovascular Cardiovascular exam: Present regular rate Abdominal Exam Abdominal exam: Present soft and other (gravid-fht -ok); Absent tenderness, guarding, rebound or rigidity Extremities Exam Extremities exam: Present full ROM Back Exam Back exam: Absent CVA tenderness (R) or CVA tenderness (L) Neurological Exam Neurological exam: Present alert, oriented X3 and CN II-XII intact Psychiatric Psychiatric exam: Present normal affec
--- NOTE | 2022-08-30 20:46 | PC.NURSE ---
Rechecked pt condition. No needs voiced at this time.
[2022-08-30 20:47] VITALS: BP 99/45; PULSE 78; O2SAT 95
[2022-08-30 21:26] LABS: HCG,Quantitative 31978 mIU/ml (0-5.42)
--- NOTE | 2022-08-30 21:27 | PC.NURSE ---
Dr. Garrett at updated pt on results
[2022-08-30 21:34] VITALS: BP 122/69; PULSE 78; RESP 18; TEMP 36.7; O2SAT 98
== END 2022-08-30 21:40 | disposition home or self-care (01) ==
PROVIDERS: Emergency Provider Emergency Medicine; PCP Internal Medicine
DX: O26.892 Other specified pregnancy related conditions, second trimester (principal); R10.9 Unspecified abdominal pain; Z3A.16 16 weeks gestation of pregnancy; O10.012 Pre-existing essential hypertension complicating pregnancy, second trimester; O99.212 Obesity complicating pregnancy, second trimester; O99.322 Drug use complicating pregnancy, second trimester; F17.210 Nicotine dependence, cigarettes, uncomplicated
CPT/HCPCS: 80053; 81001; 82150; 83690; 84702; 85025; 96360; 99285

== ENCOUNTER → 2022-10-03 12:42 | Outpatient (CLI) | payer OTHER, SELFPAY ==
--- NOTE | 2022-10-03 12:42 | US_ITS ---
FINAL REPORT CLINICAL HISTORY: 20 week anatomy scan COMPARISON: none FINDINGS: There is a single live intrauterine gestation. Presentation is cephalic. The cervix is closed and measures 4.7 cm. Placenta is posterior, grade 1. movement is noted. heart rate 146 beats per minute. Three-vessel cord with satisfactory umbilical cord insertion. Four-chamber heart is noted. brain and ventricles are unremarkable. Chest and diaphragm are unremarkable. ABDOMEN: Both kidneys are unremarkable. Stomach is unremarkable. SPINE: No anomalies identified. Both arms and legs noted. AMNIOTIC FLUID: Appropriate amount. MEASUREMENTS: ULTRASOUND AGE: 21 weeks 2 days. GESTATION AGE: 21 weeks 1 days. ESTIMATED WEIGHT: 406 g GROWTH PERCENTILE: 47 % BPD: 5.1 cm consistent with 21 weeks 4 days. OFD: 6.3 cm consistent with 21 weeks 0 days. HC: 18.1 cm consistent with 20 weeks 4 days. AC: 16.3 cm consistent with 21 weeks 3 days. FL: 3.4 cm consistent with 21 weeks 2 days. CEREBELLUM: 2.1 cm consistent with 21 weeks 2 days. HUMERUS: 3.3 cm consistent with 21 weeks 2 days. HC/AC: 1.11 CI: 81% FL/BPD: 69% FL/AC: 22% IMPRESSION: Single living IUP with an ultrasound age of 21 weeks 2 days. Reviewed, Interpreted and Dictated by Luis Armando Allison III, MD Transcribed by Lynn Rebolledo Authenticated and [facility]
== END ==
PROVIDERS: PCP Internal Medicine; Visit Provider Obstetrics & Gynecology
DX: Z34.90 Encounter for supervision of normal pregnancy, unspecified, unspecified trimester (principal); Z3A.20 20 weeks gestation of pregnancy
CPT/HCPCS: 76811

== ENCOUNTER → 2022-11-07 08:04 | Outpatient (CLI) | payer OTHER, SELFPAY ==
[2022-11-07 08:08] LABS: MANUAL DIFFERENTIAL MANUAL DIFFERENTIAL (MANUAL DIFF)
[2022-11-07 08:27] LABS: Basophils % 0.3 % (0.1-2.0); Eosinophils # 0.2 K/mm3 (0.0-0.4); Hematocrit 33.1 % (37.0-47.0); Hemoglobin 10.8 g/dL (12.2-16.2); Lymphocytes # 2.3 K/mm3 (0.7-4.5); Lymphocytes % 20.6 % (10-50); Mean Corpuscular HGB Conc 32.5 g/dL (31.8-35.4); Mean Corpuscular Hemoglobin 28.7 pg (27.0-31.2); Mean Corpuscular Volume 88.2 fl (81-99); Mean Platelet Volume 7.7 fl (7.4-10.4); Monocytes # 0.4 K/mm3 (0.1-1.0); Monocytes % 3.5 % (1.7-9.3); Neutrophils # 8.3 K/mm3 (1.8-7.8); Neutrophils % 73.7 % (37.0-80.0); Platelet Count 333 K/mm3 (142-424); Red Blood Count 3.76 M/mm3 (4.20-5.40); Red Cell Distribution Width 14.1 % (11.5-17.5); White Blood Count 11.3 K/mm3 (4.8-10.8)
[2022-11-07 08:52] LABS: Glucose,Fasting 95 mg/dl (74-100)
[2022-11-07 09:47] LABS: Glucose 1 Hour 187 mg/dL (74-100)
[2022-11-07 09:50] LABS: Lymphocytes % 9 % (10-50); Monocytes % 3 % (2-9); Neutrophils % 88 % (42-76); Platelet Estimate Normal; RBC Morphology Normal; Total Cells Counted 100
== END ==
PROVIDERS: PCP Internal Medicine; Visit Provider Obstetrics & Gynecology
DX: Z34.90 Encounter for supervision of normal pregnancy, unspecified, unspecified trimester (principal)
CPT/HCPCS: 36415; 82951; 85007; 85014; 85018; 85048; 85049

== ENCOUNTER → 2022-11-08 08:34 | Outpatient (CLI) | payer OTHER, SELFPAY ==
[2022-11-08 09:07] LABS: Glucose,Fasting 92 mg/dl (74-100)
[2022-11-08 10:23] LABS: Glucose 1 Hour 209 mg/dL (74-100)
[2022-11-08 11:15] LABS: Glucose 2 Hour 163 mg/dL (74-100)
[2022-11-08 13:38] LABS: Glucose 3 Hour 80 mg/dL (74-100)
== END ==
PROVIDERS: PCP Internal Medicine; Visit Provider Obstetrics & Gynecology
DX: Z34.90 Encounter for supervision of normal pregnancy, unspecified, unspecified trimester (principal); Z3A.26 26 weeks gestation of pregnancy
CPT/HCPCS: 36415; 82951

== ENCOUNTER → 2022-12-31 12:04 | Outpatient (CLI) | payer OTHER, SELFPAY ==
--- NOTE | 2022-12-31 12:10 | US_ITS ---
FINAL REPORT CLINICAL HISTORY: BPP, growth GENEVA FINDINGS: TRANSABDOMINAL ULTRASOUND There is a single live intrauterine gestation. Presentation is cephalic. The cervix is closed and measures 3.4 cm. Placenta is posterior and grade 2. Cardiac activity is confirmed at 134 bpm. Fetus is active. GENEVA: 18.3 cm MEASUREMENTS: ULTRASOUND AGE: 33 weeks 6 days. GESTATION AGE: 33 weeks 6 days. ESTIMATED WEIGHT: 2589 g GROWTH PERCENTILE: 79% LMP percentile HC/AC: 0.96 CI: 80% FL/BPD: 76% FL/AC: 21% BPD: 8.6 cm consistent with 34 weeks 6 days. OFD: 10.8 cm consistent with 34 weeks 4 days. HC: 30.7 cm consistent with 34 weeks 2 days. AC: 32 cm consistent with 36 weeks 0 days. FL: 6.6 cm consistent with 34 weeks 0 days. BREATHIN/2 MOVEMENT: 2/2 TONE: 2/2 FLUID VOLUME: 2/2 BPP SCORE: 8/8 IMPRESSION: Single living IUP with an ultrasound age of 33 weeks 6 days. BPP SCORE: 8/8 GENEVA: 18.3 cm Reviewed, Interpreted and Dictated by Luis Armando Allison III, MD Transcribed by Brown Uriostegui Authenticated and [facility]
== END ==
PROVIDERS: PCP Internal Medicine; Visit Provider Obstetrics & Gynecology
DX: O24.419 Gestational diabetes mellitus in pregnancy, unspecified control (principal); Z37.1 Single stillbirth; Z3A.33 33 weeks gestation of pregnancy
CPT/HCPCS: 76816; 76819

== ENCOUNTER 2023-01-10 13:49 | Outpatient (CLI) | payer OTHER, SELFPAY ==
--- NOTE | 2023-01-10 13:49 | US_ITS ---
PROCEDURE: US OB BIOPHYSICAL PROFILE CLINICAL INDICATION: gestational diabetes TECHNIQUE: Multiple images of the uterus were obtained. FINDINGS: The following parameters are obtained: From her last menstrual period she is 35 weeks and 2 days. Fetus in the vertex presentation. measurements were not obtained. BPD: OFD: HC: AC: FL: heart rate: 129bpm bpm. HC/AC: Cephalic index: FL/BPD: FL/AC: Amniotic fluid index: 11.95cm Qualitative AFV: 2 breathing movements: 0 Gross body movements: 2 Tone: 2 Biophysical profile score: 6 Doppler evaluation of the umbilical artery: SD ratio: Not performed Resistive index: Not performed No obvious anomalies evident. Placenta: Anterolateral grade 2. Cervix: Length not performed. IMPRESSION: 1. Viable fetus in the cephalic presentation with an anterolateral placenta grade 2. 2. Biophysical profile of 6/8 with no breathing movement seen. The fetus is active. The physician was notified of no breathing movement. 3. Amniotic fluid index of 11.95. 4. Limited anatomic scan appears normal. Dictated by: Rad Henriquez MD 01/11/2023 11:47 Rad Henriquez MD in OV 01/11/2023 11:47
[2023-01-10 14:47] VITALS: BMI 51.8
[2023-01-10 14:52] VITALS: BP 132/81; PULSE 107; RESP 22; TEMP 36.6; O2SAT 96
[2023-01-10 15:07] VITALS: BP 132/81; PULSE 107; RESP 22; TEMP 36.6; O2SAT 96; BMI 51.8
[2023-01-10 15:15] LABS: Microscopic, Urine URINE MICROSCOPIC (MICROSCOPIC)
[2023-01-10 15:22] LABS: Appearance,Urine CLEAR (Clear); Bilirubin,Urine Negative (Negative); Blood, Urine Negative (Negative); Color,Urine YELLOW (Yellow); Glucose,Urine (UA) Negative (Negative); Ketones,Urine Negative (Negative); Leukocyte Esterase,Urine Negative (Negative); Nitrate,Urine Negative (Negative); PH,Urine 6.5 (5.0-8.5); Protein,Urine Negative (Negative); Urobilinogen,Urine 0.2 EU/dl (0.2)
[2023-01-10 15:33] LABS: Barbiturates Screen,Urine Negative ng/ml (<200); Benzodiazepines Screen,Urine Negative ng/ml (<200)
[2023-01-10 15:34] LABS: Amphetamine/Metha Screen,Urine Negative ng/ml (<1000); Cannabinoid Screen,Urine Negative ng/ml (<50)
[2023-01-10 15:35] LABS: Cocaine Screen,Urine Negative ng/ml (<300)
[2023-01-10 15:36] LABS: Methadone Screen,Urine Negative ng/ml (<300); Opiate Screen,Urine Negative ng/ml (<300)
[2023-01-10 15:37] LABS: Phencyclidine Screen,Urine Negative ng/ml (<25)
[2023-01-10 16:03] LABS: WBC,Urine Occasional #/hpf (0-3)
== END 2023-01-10 15:52 | disposition home or self-care (01) ==
LOC: RAD 13:49 → OBOUT 14:39 → OB 14:40
PROVIDERS: Obstetrics & Gynecology; PCP Internal Medicine; Visit Provider Obstetrics & Gynecology
DX: O24.419 Gestational diabetes mellitus in pregnancy, unspecified control (principal); Z3A.35 35 weeks gestation of pregnancy
CPT/HCPCS: 59025; 76819; 80305; 81001; G0463

== ENCOUNTER → 2023-01-16 23:00 | Outpatient (CLI) | payer OTHER, SELFPAY | PROVIDERS: PCP Internal Medicine; Visit Provider Obstetrics & Gynecology | DX: Z34.93 Encounter for supervision of normal pregnancy, unspecified, third trimester (principal); Z3A.36 36 weeks gestation of pregnancy | CPT/HCPCS: 86403 ==

== ENCOUNTER 2023-01-21 15:40 | Inpatient (IN) | payer OTHER, SELFPAY ==
[2023-01-21 16:23] VITALS: BMI 51.8
[2023-01-21 16:58] LABS: Microscopic, Urine URINE MICROSCOPIC (MICROSCOPIC)
[2023-01-21 17:03] LABS: Basophils % 0.2 % (0.1-2.0); Eosinophils # 0.1 K/mm3 (0.0-0.4); Eosinophils % 0.6 % (0.1-12.0); Hematocrit 34.6 % (37.0-47.0); Hemoglobin 11.2 g/dL (12.2-16.2); Lymphocytes # 1.5 K/mm3 (0.7-4.5); Lymphocytes % 14.1 % (10-50); Mean Corpuscular HGB Conc 32.5 g/dL (31.8-35.4); Mean Corpuscular Hemoglobin 27.3 pg (27.0-31.2); Mean Corpuscular Volume 83.9 fl (81-99); Mean Platelet Volume 8.1 fl (7.4-10.4); Monocytes # 0.5 K/mm3 (0.1-1.0); Monocytes % 4.5 % (1.7-9.3); Neutrophils # 8.6 K/mm3 (1.8-7.8); Neutrophils % 80.6 % (37.0-80.0); Platelet Count 344 K/mm3 (142-424); Red Blood Count 4.13 M/mm3 (4.20-5.40); Red Cell Distribution Width 14.2 % (11.5-17.5); White Blood Count 10.6 K/mm3 (4.8-10.8)
[2023-01-21 17:10] LABS: Appearance,Urine CLEAR (Clear); Bilirubin,Urine Negative (Negative); Blood, Urine Negative (Negative); Color,Urine YELLOW (Yellow); Glucose,Urine (UA) Negative (Negative); Ketones,Urine Negative (Negative); Leukocyte Esterase,Urine Negative (Negative); Nitrate,Urine Negative (Negative); PH,Urine 6.5 (5.0-8.5); Protein,Urine Negative (Negative); Specific Gravity, Urine <= 1.005 (1.005-1.030); Urobilinogen,Urine 0.2 EU/dl (0.2)
[2023-01-21 17:21] LABS: Squamous Epithelial Cell,Urine Occasional #/hpf (0-5)
[2023-01-21 17:23] LABS: Coronavirus 19, PCR Not Detected (NotDetected); Influenza A, PCR Not Detected (NotDetected); Influenza B, PCR Not Detected (NotDetected)
[2023-01-21 17:30] VITALS: BP 143/81; PULSE 102; RESP 18; TEMP 36.7; O2SAT 97; BMI 51.8
[2023-01-22] VITALS (8 sets, daily range): BP systolic 97–142; BP diastolic 58–83; PULSE 70–87; RESP 16–20; TEMP 36.3–36.8; O2SAT 97–100
--- NOTE | 2023-01-22 07:20 | EXP.OB.APHP ---
OB - H&P: HPI Antepartum History of Present Illness Chief complaint: Induction of labor History of present illness: Ms Barbara Alcantara is a 22 yo at 37w0d who presents for scheduled induction of labor secondary to history of stillbirth at 34 weeks. She has gestational diabetes that is controlled with insulin. She is taking Insulin Aspart 3 units 20 minutes before lunch. She has been following with [facility]. Growth ultrasound 12/17 demonstrated EFW 69%ile. Baby is active. No vaginal bleeding or leakage of fluid on admission. History of Present Criteria for establishing EDC:: based on 1st trimester US only care: good care Ultrasounds: normal mid trimester US Obstetrical complications: gestational diabetes Labs Blood type: A (+) positive Rubella: nonimmune RPR/VDRL: nonreactive GBS status: negative HBsAG: [facility] Disclaimer: The information contained in this section may have been updated after the patient was seen, as this information can be updated by other users. Medical History (Updated 01/22/23 @ 07:31 by Kathy Russell DO) Gestational diabetes mellitus (GDM) Headache Maternal obesity affecting , antepartum Morbid obesity with BMI of 45.0-49.9, adult with 37 weeks completed gestation Rubella non-immune status, antepartum Screening for genetic disease carrier status Tobacco use affecting , antepartum Family History Other No significant family history Social History Smoking Status: Current every day smoker tobacco type: cigarettes packs per day: 1 second hand exposure: No alcohol intake: never substance use type: denies use current occupational status: unemployed Travel in the last 8 weeks: None household members: family housing: house Review of Systems Review of Systems Review of systems:: pertinent systems reviewed and negative unless documented below Meds Home Medications and Allergies Home Medications Medication Instructions Recorded Confirmed Type aspirin 81 mg tablet,delayed 81 mg PO DAILY .. 08/15/22 01/21/23 History release (Adult Low Dose Aspirin) blood sugar diagnostic (OneTouch #10 ea 12/06/22 01/21/23 History Verio test strips) blood-glucose meter (OneTouch #1 ea 12/06/22 01/21/23 History Verio Flex Meter) lancets 30 gauge (OneTouch Delica #100 ea 12/06/22 01/21/23 History Plus Lancet) insulin aspart U-100 100 unit/mL 3 unit SQ .20 mins before lunch 12/31/22 01/21/23 History subcutaneous solution Diabetes sertraline 50 mg tablet 50 mg PO DAILY Depression 01/21/23 01/21/23 History New Prescriptions to Start Prescriptions: Allergies Allergy/AdvReac Type Severity Reaction Status Date / Time No Known Allergies Allergy Verified 01/20/23 14:12 OB - H&P: Exam Physical Exam Vital signs: Temp Pulse Resp BP Pulse Ox 98.0 F 102 H 18 143/81 H 97 01/21/23 17:30 01/21/23 17:30 01/21/23 17:30 01/21/23 17:30 01/21/23 17:30 Constitutional no acute distress Routine HEENT Exam Head: Present normocephalic and atraumatic Eye: Absent conjunctivae pink ENT: Present mucous membranes moist Routine Neck Exam Present full ROM Routine Respiratory Exam Present CTA bilaterally and normal respiratory effort Routine Cardiovascular Exam Present RRR Routine Abdominal Exam Present soft (Gravid); Absent tenderness Routine Rectal Exam Patient deferred: visual exam Routine Exam External: Present normal urethra appearance; Absent erythema, lesions or vulvar erythema Routine Extremities Exam Present edema (+1 bilateral lower extremity edema) and full ROM; Absent calf tenderness Routine Neurological Exam Present alert, oriented X3 and moving all extremities Routine Psychiatric Exam Present normal affect and cooperative Detailed Labor and Delivery Exam Dilation (cm): 1 Effaceme
--- NOTE | 2023-01-22 19:43 | P.PN_ITS ---
Labor Note Subjective: Date: 01/22/23 Time: 19:43 Objective: Cervical Dilation:: 3 Effacement:: 70% Station: -2 Membranes: ruptured Comment:: FHT Category 1 Baseline 135 bpm, moderate variability, no accelerations, no decelerations [place]: q 3-4 minutes Fetus: Monitoring?: Yes monitoring type:: Internal Comment:: IUPC demonstrated adequate Independence Units, 205 Assessment: Labor progressing?: No Problems: (1) with 37 weeks completed gestation: Category: Medical Code(s): Z3A.37 - 37 weeks gestation of (2) Failure to progress in labor: Category: Medical Code(s): O62.2 - Other uterine inertia (3) Gestational diabetes mellitus (GDM): Problem Comment: on insulin Category: Medical Code(s): O24.419 - Gestational diabetes mellitus in , unspecified control (4) MDD (major depressive disorder), recurrent episode: Qualifiers: Major depression episode severity: moderate Qualified Code(s): F33.1 - Major depressive disorder, recurrent, moderate Category: Medical Code(s): F33.9 - Major depressive disorder, recurrent, unspecified (5) Tobacco use affecting , antepartum: Category: Medical Code(s): O99.330 - Smoking (tobacco) complicating , unspecified trimester (6) Maternal obesity affecting , antepartum: Category: Medical Code(s): O99.210 - Obesity complicating , unspecified trimester (7) Rubella non-immune status, antepartum: Category: Medical Code(s): O09.899 - Supervision of other high risk pregnancies, unspecified trimester; Z28.39 - Other underimmunization status (8) Delivery outcome of stillborn infant: Problem Comment: History of stillbirth in 2021 Qualifiers: Number of infants delivered: single Qualified Code(s): Z37.1 - Single stillbirth Category: Medical Code(s): Z37.1 - Single stillbirth Plan: Continue to labor down?: No Plan for ?: Yes Additional information:: Cervical exam /-2 unchanged over 5 hours. Pitocin reached 20 units and IUPC demonstrated adequate Independence units FHT category 1 Discussed failure to progress with patient. Decision was made to proceed with primary . Discussed procedure in detail. Discussed risks, benefits, alternatives, expectations and possible complications of surgery. All questions addressed and answered. She voiced understanding of risks and possible complications. Consent form signed
[2023-01-22 19:55] LABS: POC Glucose,Bedside 87 (70-110)
[2023-01-22 20:57] LABS: Cord Blood PH 7.33 (7.35-7.45)
--- NOTE | 2023-01-22 21:32 | EXP.OP.NOTE ---
Date of procedure: 01/22/23 Pre-op Diagnosis:: 1. IUP at 37w0d 2. Induction of labor 3. GDMA2 4. Maternal obesity 5. Tobacco use 6. History of delivery of stillborn 7. Failure to progress Post-op Diagnosis:: 1. IUP at 37w0d 2. Induction of labor 3. GDMA2 4. Maternal obesity 5. Tobacco use 6. History of delivery of stillborn 7. Failure to progress 8. Cephalopelvic disproportion Procedure performed:: Primay Low Transverse Section Surgeon:: Kathy Russell DO Slag Mixer(s):: Luis Armando Pleitez MD EQUIPMENT MAINTENANCE TECHNICIAN:: Catracho Gill Anesthesia: spinal Estimated blood loss (mL): 500 Clinical Note:: Ms Barbara Alcantara is a 22 yo at 37w0d who presented to [facility] for scheduled induction of labor secondary to history of stillbirth at 34 weeks. She has gestational diabetes that is controlled with insulin. She has been following with [facility]. Growth ultrasound 12/17 demonstrated EFW 69%ile. GBS negative. She underwent induction of labor with Cervidil followed by Pitocin. She progressed to 3/70/-2. Cervical exam 3/70/-2 unchanged over 5 hours. Pitocin reached 20 units and IUPC demonstrated adequate Adrian units. FHT category 1. Discussed failure to progress with patient. Decision was made to proceed with primary . Discussed procedure in detail. Discussed risks, benefits, alternatives, expectations and possible complications of surgery. All questions addressed and answered. She voiced understanding of risks and possible complications. Consent form signed Operative findings:: 1. Live female baby (baby's name is Shirley) APGARs 7, 8 2. Asynclytic presentation 3. Grossly normal appearing uterus, bilateral fallopian tubes and bilateral ovaries Operative note:: The risks, benefits and alternatives of the procedure were reviewed with the patient. Informed consent was obtained. Patient was taken to the operating room where spinal anesthesia was placed. The patient received 3 grams of Ancef preoperatively. Patient was placed in dorsal supine position with a leftward tilt. SCDs in place. Dickinson catheter had been placed and was draining clear urine prior to the start of the procedure. heart tones were obtained. Vagina was prepped with Betadine swabs x 3. Patient was then prepped and draped in normal sterile fashion. Allis clamp test was performed to ensure adequate anesthesia. A Pfannenstiel skin incision was made 2 cm above pubic symphysis. This was carried through to underlying layer of fascia. Fascia was incised in midline, extended laterally with Sarmiento scissors. Superior aspect of fascial incision was grasped with two Lalo clamps, elevated up, and rectus muscle dissected off bluntly and sharply with Sarmiento scissors. The retcus muscle was then in the midline and the peritoneum was entered bluntly with a digit. Peritoneal incision was then extended superiorly and inferiorly with good visualization of the bladder. Duran retractor was inserted. The lower uterine segment was incised in a transverse fashion. Clear amniotic fluid was noted. Head was delivered without difficulty. Remainder of body was delivered without difficulty. Mouth and nares were bulb suctioned. Spontaneous cry was noted. Delayed cord clamping was performed for 60 seconds. The umbilical cord was clamped and cut. The was handed to awaiting pediatric staff in stable condition. Dr. Jefferson was present. Apgars were 7(1 min), 8(5 min). Cord blood was obtained. Gentle traction on the umbilical cord and uterine fundal massage delivered the placenta. Placenta was intact. Placenta will be sent to pathology for review. Uterus was cleared of all clots and debris with a moist laparotomy sponge. Corners of the uterine incision were grasped with Allis clamps. The uterine incision was reapproximated with # 1 Vicryl suture in a running, locked stitch. Second layer of the same stitch was used to imbricate the incision. Excellent hemostasis was noted. Gutters cleared of all cl
--- NOTE | 2023-01-22 21:42 | P.PN_ITS ---
[facility] Disclaimer: The information contained in this section may have been updated after the patient was seen, as this information can be updated by other users. Medical History (Updated 01/22/23 @ 19:49 by Kathy Russell DO) Failure to progress in labor Gestational diabetes mellitus (GDM) Headache Maternal obesity affecting , antepartum Morbid obesity with BMI of 45.0-49.9, adult with 37 weeks completed gestation Rubella non-immune status, antepartum Screening for genetic disease carrier status Tobacco use affecting , antepartum Family History Other No significant family history Social History Smoking Status: Current every day smoker tobacco type: cigarettes packs per day: 1 second hand exposure: No alcohol intake: never substance use type: denies use current occupational status: unemployed Travel in the last 8 weeks: None household members: family housing: house [facility] Anesthesia Checklist Patient Identification Patient Identification: Arm Band Structural Data Admitted From: Inpatient Planned Operative Procedure/s: Primary C/S Consent for Planned Operative Procedure(s) Verified: Yes Verified Documents: Surgical Consent and History and Physical NPO Status Verified Time NPO: 00:00 Additional verifications Anesthesia Reactions: No Airway Assessment C-Spine Mobility Assessed: Yes TMJ Mobility Assessed: Yes Dentition: Good Dentition Neurological Assessment Level of Consciousness: Awake and Alert Anesthesia Plan Anesthesia Risk discussed: Yes Anesthesia Plan: Verified ASA Class: II Anesthesia Type: Spinal (With Bilateral TAP Blocks)
--- NOTE | 2023-01-22 21:43 | EXP.ANES.I ---
[facility] Anesthesia Record Part I Anesthesia Record I Intake, IV Amount: 2,500 Estimated blood loss (mL): 500 Urine output (mL): 300 Blood Products used (#): none Blood Pressure: 131/75 SaO2: 99 Pulse Rate: 72 Respiratory Rate: 16 Temperature: 97.3 F Patient is:: Awake and Stable Stable to PACU at:: 21:35
--- NOTE | 2023-01-22 22:25 | SUR.OPER ---
2048- Time of of viable infant. Cord blood pH 7.33
--- NOTE | 2023-01-22 22:31 | SUR.PHASEI ---
2202- Report called to OB nurse STUART Butler. 2204- Patient transported to OB room 277 in stable condition by this RN and Ahmet. Bed left in lowest position and locked. This RN with STUART Butler assessed abdominal dressing, clean dry and intact. STUART Butler performed fundal massage while this RN still present at bedside. QBL reviewed with STUART Butler at bedside. All vital signs stable. Patient was left in the care of STUART Butler.
[2023-01-22 23:35] LABS: Microscopic,Cath URINE MICROSCOPIC (MICROSCOPIC)
[2023-01-22 23:42] LABS: Appearance,Urine/Cath CLEAR (Clear); Bilirubin,Cath Negative (Negative); Blood, Urine/Cath Negative (Negative); Color,Urine/Cath YELLOW (Yellow); Glucose,Urine/Cath (UA) Negative (Negative); Ketones,Urine/Cath Negative (Negative); Leukocyte Esterase,Cath Negative (Negative); Nitrate,Cath Negative (Negative); PH,Urine/Cath 6.5 (5.0-8.5); Protein,Urine/Cath Negative (Negative); Urobilinogen,Cath 0.2 EU/dl (0.2)
[2023-01-22 23:49] LABS: WBC,Urine/Cath Occasional #/hpf (0-3)
[2023-01-23 02:17] LABS: Amphetamine/Metha Screen,Urine Negative ng/ml (<1000)
[2023-01-23 02:18] LABS: Barbiturates Screen,Urine Negative ng/ml (<200)
[2023-01-23 02:19] LABS: Benzodiazepines Screen,Urine Negative ng/ml (<200); Cannabinoid Screen,Urine Negative ng/ml (<50)
[2023-01-23 02:20] LABS: Cocaine Screen,Urine Negative ng/ml (<300)
[2023-01-23 02:21] LABS: Methadone Screen,Urine Negative ng/ml (<300)
[2023-01-23 02:24] LABS: Opiate Screen,Urine Negative ng/ml (<300)
[2023-01-23 02:25] LABS: Phencyclidine Screen,Urine Negative ng/ml (<25)
[2023-01-23 06:01] LABS: POC Glucose,Bedside 101 (70-110)
[2023-01-23 06:47] LABS: Basophils % 0.1 % (0.1-2.0); Eosinophils # 0.1 K/mm3 (0.0-0.4); Eosinophils % 1.2 % (0.1-12.0); Hematocrit 30.9 % (37.0-47.0); Lymphocytes % 17.3 % (10-50); Mean Corpuscular HGB Conc 32.4 g/dL (31.8-35.4); Mean Corpuscular Hemoglobin 27.5 pg (27.0-31.2); Mean Corpuscular Volume 84.8 fl (81-99); Mean Platelet Volume 7.9 fl (7.4-10.4); Monocytes # 0.8 K/mm3 (0.1-1.0); Monocytes % 6.6 % (1.7-9.3); Neutrophils # 8.6 K/mm3 (1.8-7.8); Neutrophils % 74.8 % (37.0-80.0); Platelet Count 301 K/mm3 (142-424); Red Blood Count 3.65 M/mm3 (4.20-5.40); White Blood Count 11.5 K/mm3 (4.8-10.8)
[2023-01-23 06:55] VITALS: BP 135/79; PULSE 73; TEMP 36.3
--- NOTE | 2023-01-23 06:55 | EXP.ANES.II ---
[facility] Anesthesia Record Part II Anesthesia Record Part II Discharge Time: 22:05 Destination: Obstetric PACU nurse assessment reviewed?: Yes Patient Condition:: Good Anesthesia Complications:: None Swallowing reflex intact?: Yes Cyanosis?: No Blood Pressure: 135/79 Pulse Rate: 73 Temperature: 97.3 F Mental Status: Alert & Oriented Pain level:: 0 Nausea and/or vomitting:: None Intake, IV Amount: 0
[2023-01-23 08:00] VITALS: BP 135/91; PULSE 86; RESP 20; TEMP 36.8; O2SAT 98
--- NOTE | 2023-01-23 08:26 | EXP.ACUTE.PN ---
Subjective *Date: 01/23/23 *Time: 08:26 Interval history: POD # 1 s/p PLTCS Resting comfortably in bed this morning. Pain controlled. Appropriate lochia. She is formula feeding. Tolerating regular diet. Voiding without difficulty. She has not passed flatus yet. Denies fever/chills, chest pain and shortness of breath. No headaches, dizziness. Admits to lower extremity swelling. Ambulating well ad cecilia. Medical Exam Vital signs and Labs for Last 24 Hours: Vital Signs Temp Pulse Pulse Resp BP BP Pulse Ox 01/22/23 22:05 73 19 135/79 100 01/22/23 21:55 70 17 128/65 100 01/22/23 21:45 71 18 142/83 H 100 01/22/23 21:35 97.3 F L 72 16 131/75 99 01/22/23 16:00 98.1 F 77 20 97/58 L 98 01/22/23 12:00 98.1 F 87 18 135/63 98 01/22/23 21:44 97.3 F L 72 16 131/75 Intake and Output 01/22/23 01/23/23 01/23/23 23:59 07:59 15:59 Intake Total 2500 / 2500 0 / 0 Output Total 900 / 900 Balance 2500 / 2500 -900 / -900 Intake: Intake, Total IV Amount 2500 / 2500 0 / 0 Output: Output, Urine Amount (Catheter) 900 / 900 Dickinson 900 / 900 Laboratory Results - last 24 hr 01/21/23 16:45: Crossmatch (AHG) See Detail 01/22/23 19:48: POC Glucose 87 01/22/23 20:28: Urine Color Yellow, Urine Appearance Clear, Urine pH 6.5, Ur Specific [place] 1.010, Urine Protein Negative, Urine Glucose (UA) Negative, Urine Ketones Negative, Urine Blood Negative, Urine Nitrate Negative, Urine Bilirubin Negative, Urine Urobilinogen 0.2, Ur Leukocyte Esterase Negative, Urine RBC None, Urine WBC Occasional, Ur Squamous Epith Cells None, Urine Bacteria None 01/22/23 20:28: Urine Opiates Screen Negative, Urine Methadone Screen Negative, Ur Barbituates Screen Negative, Ur Phencyclidine Scrn Negative, Ur Amphetamines Screen Negative, U Benzodiazepines Scrn Negative, Urine Cocaine Screen Negative, U Marijuana (THC) Screen Negative 01/22/23 20:54: Cord ABG pH 7.33 L 01/23/23 05:54: POC Glucose 101 01/23/23 06:38: WBC 11.5 H, RBC 3.65 L, Hgb 10.0 L, Hct 30.9 L, MCV 84.8, MCH 27.5, MCHC 32.4, RDW 14.0, Plt Count 301, MPV 7.9, Neut % (Auto) 74.8, Lymph % (Auto) 17.3, [place] % (Auto) 6.6, Eos % (Auto) 1.2, Baso % (Auto) 0.1, Neut # (Auto) 8.6 H, Lymph # (Auto) 2.0, [place] # (Auto) 0.8, Eos # (Auto) 0.1, Baso # (Auto) 0.0 I & O for Labs for Last 24 Hours: Intake & Output 01/20/23 01/21/23 01/22/23 01/23/23 23:59 23:59 23:59 23:59 Intake Total 2500 / 2500 0 / 0 Output Total 900 / 900 Balance 2500 / 2500 -900 / -900 Weight 302 lb Head: Present atraumatic and normocephalic ENT: Present mucous membranes moist Neck: Present normal inspection and full ROM Respiratory: Present CTA bilaterally and normal respiratory effort Cardiac: Present Regular Rate GI: Present soft and normal bowel sounds; Absent distention, tenderness or guarding Comments:: Uterine fundus firm and below umbilicus, Pfannenstiel incision clean/dry/intact with metal adam in place Rectal (female): Present deferred (female): Present deferred Extremities: Present full ROM and edema (+1 bilateral lower extremity edema); Absent calf tenderness Neuro: Present alert, awake, oriented x 3 and moves all extremities Assessment and Plan *Assessment and plan (1) with 37 weeks completed gestation: Status: Acute Category: Medical Code(s): Z3A.37 - 37 weeks gestation of (2) Failure to progress in labor: Status: Acute Category: Medical Code(s): O62.2 - Other uterine inertia (3) Gestational diabetes mellitus (GDM): Problem Comment: on insulin Status: Acute Category: Medical Code(s): O24.419 - Gestational diabetes mellitus in , unspecified control (4) MDD (major depressive disorder), recurrent episode: Status: Acute Qualifiers: Major depression episode severity: moderate Qualified Code(s): F33.1 - Major depressive disorder, rec
[2023-01-23 08:35] LABS: POC Glucose,Bedside 54 (70-110)
--- NOTE | 2023-01-23 15:46 | SW/DCPLANNER ---
Addendum entered by Malathi Govea 01/27/23 09:24: Infant cord screen is NEGATIVE. Addendum entered by [facility] 01/24/23 09:03: Per Central Intake this case did not meet criteria for investigation. Original Note: I received a consult on this patient regarding: father of baby is a registered sex offender on parole. Patient tested positive for THC first visit on 07/18/2022. Patient and infant urine drug screen were both negative on admission. Patient delivered infant female (Shirley Harris) on 01/22/2023. Infant's father (Jagdish Harris 08/31/1998) is involved with per patient. Patient, , her parents (Cesar and Yareli Alcantara) will reside at [address] [place] [address] in [place]. Patient's contact number is [phone]. Patient is currently established with [facility] and is not interested in HANDS. Patient has the following items at home: crib, carseat, clothing, diapers and will be bottle feeding. Patient stated that she will have transportation to all follow up appointments. MD is Dr Padilla. Patient and are expected to discharge tomorrow 01/24/23 pending no setbacks. Patient stated that infant's father Jagdish is a registered sex offender. Jagdish does not reside with patient and but does have a roommate whom is also a registered sex offender. Dr Russell has expressed concern to OB staff regarding father involvement with infant. This case has been reported to Central Intake ID# [id number].
[2023-01-23 16:19] VITALS: BP 136/81; PULSE 85; RESP 20; TEMP 36.5; O2SAT 100
[2023-01-23 21:00] VITALS: BP 147/84; PULSE 92; RESP 17; TEMP 36.9; O2SAT 98
--- NOTE | 2023-01-24 04:16 | EXP.DC.SUM ---
General Admission date:: 01/21/23 Discharge date: 01/24/23 HPI HPI HPI: POD # 2 s/p PLTCS Resting comfortably. Pain controlled. Light lochia. Formula feeding. Voiding without difficulty and passing flatus. Tolerating regular diet. Denies headaches, vision changes and dizziness. Denies swelling. Ambulating well ad cecilia. Hospital Course Hospital Course Hospital Course: Ms Barbara Alcantara is a 22 yo at 37w0d who presented to [facility] for scheduled induction of labor secondary to history of stillbirth at 34 weeks. She has gestational diabetes that is controlled with insulin. She has been following with [facility]. Growth ultrasound 12/17 demonstrated EFW 69%ile. GBS negative. She underwent induction of labor with Cervidil followed by Pitocin. She progressed to 3/70/-2. Cervical exam 3/70/-2 unchanged over 5 hours. Pitocin reached 20 units and IUPC demonstrated adequate [place] units. FHT category 1. Discussed failure to progress with patient. Decision was made to proceed with primary . She underwent primary on 01/22/23. She delivered a live female baby (baby's name is Shirley) weighing 8 lbs 7 oz. APGARs 7, 8. EBL 500 mL. She did well postoperatively. Total QBL was just over 1000 mL. She received Venofer 200 mg IV x 1 dose on postop day # 1. Pain is controlled with medication. She is formula feeding. Light lochia. Voiding without difficulty and passing flatus. Vital signs stable, afebrile. Heart was regular rate and rhythm. Lungs clear to ascultation. Abdomen soft, nontender. Trace bilateral lower extremity on postop day # 2. No calf tenderness. Normal hospital course. She was discharged to home on postop day # 2 and instructed to follow-up in the office in 7 days for incision check and staple removal. She received MMR before discharge. Exam Data for Last 24 hours Vital signs and Labs for Last 24 Hours: Temp Pulse Resp BP Pulse Ox 98.4 F 92 H 17 147/84 H 98 01/23/23 21:00 01/23/23 21:00 01/23/23 21:00 01/23/23 21:00 01/23/23 21:00 Laboratory Results - last 24 hr 01/21/23 16:45: Blood Type A Positive, Antibody Screen Negative, Crossmatch (AHG) See Detail 01/23/23 05:54: POC Glucose 101 01/23/23 06:38: WBC 11.5 H, RBC 3.65 L, Hgb 10.0 L, Hct 30.9 L, MCV 84.8, MCH 27.5, MCHC 32.4, RDW 14.0, Plt Count 301, MPV 7.9, Neut % (Auto) 74.8, Lymph % (Auto) 17.3, [place] % (Auto) 6.6, Eos % (Auto) 1.2, Baso % (Auto) 0.1, Neut # (Auto) 8.6 H, Lymph # (Auto) 2.0, [place] # (Auto) 0.8, Eos # (Auto) 0.1, Baso # (Auto) 0.0 01/23/23 08:28: POC Glucose 54 L I & O for Last 24 hours: Intake & Output 01/21/23 01/22/23 01/23/23 01/24/23 23:59 23:59 23:59 23:59 Intake Total 2500 / 2500 0 / 0 Output Total 900 / 900 Balance 2500 / 2500 -900 / -900 Weight 302 lb Constitutional Constitutional: no acute distress *Routine HEENT Exam Head: Present normocephalic and atraumatic Eye: Absent conjunctivae pink ENT: Present mucous membranes moist *Routine Neck Exam Neck: Present full ROM *Routine Respiratory Exam Respiratory: Present CTA bilaterally and normal respiratory effort *Routine Cardiovascular Exam Cardiovascular: Present RRR *Routine Abdominal Exam Abdominal: Present soft and normoactive bowel sounds; Absent tenderness or distended Comments: Uterine fundus firm and below umbilicus, pfannenstiel incision clean/dry/intact with metal adam in place *Routine Extremities Exam Extremities: Present edema (trace bilateral lower extremity edema) and full ROM; Absent calf tenderness *Routine Neurological Exam Neurological: Present alert, oriented X3 and moving all extremities Routine Psychiatric Exam Psychiatric: Present normal affect and cooperative Results Data Completed and Pending Labs on day of discharge: Labs from last 24 hours 01/23/23 01/23/23 01/23/23 08:28 06:38 05:54 WBC 11.5 H RBC 3.65 L Hgb 10.0 L Hct 30.9 L MCV 84.8 MCH 27.5 MCHC 32.4 RDW 14.0 Plt Count 301
[2023-01-24 08:59] VITALS: BP 134/83; PULSE 95; RESP 17; TEMP 36.8; O2SAT 99
== END 2023-01-24 13:05 | disposition home or self-care (01) | DRG 787 ==
PROVIDERS: Admitting Provider Obstetrics & Gynecology; PCP Internal Medicine; Visit Provider Obstetrics & Gynecology
PROC: 10D00Z1 Extraction of Products of Conception, Low, Open Approach (ICD-10-PCS; CPT 59514; principal; 2023-01-22 20:00)
DX: O24.429 Gestational diabetes mellitus in childbirth, unspecified control (principal); D62 Acute posthemorrhagic anemia; F33.9 Major depressive disorder, recurrent, unspecified; O99.344 Other mental disorders complicating childbirth; O99.334 Smoking (tobacco) complicating childbirth; Z3A.37 37 weeks gestation of pregnancy; O33.9 Maternal care for disproportion, unspecified; O62.2 Other uterine inertia; O90.81 Anemia of the puerperium; F17.210 Nicotine dependence, cigarettes, uncomplicated; Z37.0 Single live birth
CPT/HCPCS: 59514; 59025; 80305; 81001; 82800; 82962; 85025; 86850; 87636; 88307; 90707; 94761; C1758; C9290; C9803; G0283; J0690; J1756; U0003; U0005

== ENCOUNTER 2023-01-28 01:28 | Observation (INO) | payer OTHER, SELFPAY ==
[2023-01-28] VITALS (28 sets, daily range): BP systolic 110–157; BP diastolic 58–91; PULSE 83–115; RESP 15–19; TEMP 36.7–36.9; O2SAT 98–99; BMI 113.5; BMI 51.5
--- NOTE | 2023-01-28 00:40 | PC.NURSE ---
Patient arrived to the unit at this time via wheelchair. Urine sample obtained.
--- NOTE | 2023-01-28 00:55 | PC.NURSE ---
Patient reports high blood pressure at home. Patient reports headache and has not taken anything for it. Patient is negative jeevan's and clonus is absent, bilateral patellar reflexes are +2. Patient does have bilateral non-pitting pedal and ankle edema. Patient appears tearful upon examination.
[2023-01-28 01:05] LABS: Microscopic, Urine URINE MICROSCOPIC (MICROSCOPIC)
[2023-01-28 01:06] LABS: Bilirubin,Urine Negative (Negative); Blood, Urine 2+ (Negative); Color,Urine YELLOW (Yellow); Glucose,Urine (UA) Negative (Negative); Ketones,Urine Negative (Negative); Leukocyte Esterase,Urine 1+ (Negative); Nitrate,Urine Negative (Negative); Protein,Urine Negative (Negative); Urobilinogen,Urine 0.2 EU/dl (0.2)
[2023-01-28 01:11] LABS: Appearance,Urine Slightly Cloudy (Clear)
[2023-01-28 01:22] LABS: Bacteria,Urine 1+ /lpf
[2023-01-28 02:15] LABS: Basophils % 0.4 % (0.1-2.0); Eosinophils # 0.4 K/mm3 (0.0-0.4); Eosinophils % 3.5 % (0.1-12.0); Hematocrit 35.3 % (37.0-47.0); Hemoglobin 11.4 g/dL (12.2-16.2); Lymphocytes # 3.3 K/mm3 (0.7-4.5); Lymphocytes % 30.5 % (10-50); Mean Corpuscular HGB Conc 32.2 g/dL (31.8-35.4); Mean Corpuscular Volume 83.9 fl (81-99); Mean Platelet Volume 7.5 fl (7.4-10.4); Monocytes # 0.4 K/mm3 (0.1-1.0); Neutrophils # 6.8 K/mm3 (1.8-7.8); Neutrophils % 61.6 % (37.0-80.0); Platelet Count 393 K/mm3 (142-424); Red Blood Count 4.21 M/mm3 (4.20-5.40); Red Cell Distribution Width 14.3 % (11.5-17.5)
[2023-01-28 02:18] LABS: Alanine Aminotransferase 32 U/L (12-78); Anion Gap 14.4 mEq/L (5-15); Aspartate Amino Transferase 30 U/L (14-36); Blood Urea Nitrogen 16 mg/dl (7-17); Carbon Dioxide 26 mmol/L (22.0-30.0); Chloride 102 mmol/L (98-107); Creatinine Clearance Estimated 127 mL/min (50-200); Estimated Glomerular Filt Rate 125 ml/min (>60); GFR (African American) 151 ML/MIN (>60); Glucose 107 mg/dl (74-100); Magnesium 1.6 mg/dl (1.6-2.3); Potassium 3.4 mmoL/L (3.5-5.1); Sodium 139 mmol/L (136-145); Uric Acid 5.4 mg/dl (2.5-6.2)
--- NOTE | 2023-01-28 02:20 | PC.NURSE ---
Patient's DTR remain unchanged from last assessment at +2.
[2023-01-28 02:32] LABS: D-Dimer 1.95 ug/mL (0.0-0.5)
--- NOTE | 2023-01-28 02:35 | PC.NURSE ---
Patient reports a decrease in pain from her headache.
[2023-01-28 02:54] LABS: Fibrinogen 405 mg/dL (229.9-363.5); INR 0.82 (0.9-1.1)
[2023-01-28 03:01] LABS: Coronavirus 19, PCR Not Detected (NotDetected); Influenza A, PCR Not Detected (NotDetected); Influenza B, PCR Not Detected (NotDetected)
--- NOTE | 2023-01-28 03:06 | PC.NURSE ---
Patient's LOC remains within normal limits. Patient is alert and oriented. Patient DTR are +2 bilateral patellar. Patient has not voided since arrival to the unit at 0044.
--- NOTE | 2023-01-28 04:25 | PC.NURSE ---
Patient's DTR remain WNL at +2. Patient is able to rest comfortably. No needs voiced.
[2023-01-28 06:46] LABS: Magnesium 3.8 mg/dl (1.6-2.3)
--- NOTE | 2023-01-28 07:56 | HMH.PHAINT1 ---
Pharmacy Intervention Comments: MEDICATION RECONCILIATION COMPLETED ON PATIENT USING EXTERNAL FILL HISTORY FROM PHARMACY AND DISCHARGE SUMMARY FROM PREVIOUS ADMISSION. -RAISSA LIU, VALENTÍND
--- NOTE | 2023-01-28 08:15 | PC.NURSE ---
Pt resting comfortably in the bed at this time. no needs voiced, BLE DTR'S +2 clonus absent. Pt denies headache, blurred vision or spots before the eyes
--- NOTE | 2023-01-28 09:00 | PC.NURSE ---
Pt is resting comfortably in the bed at this time, no needs voiced
--- NOTE | 2023-01-28 09:09 | EXP.HP ---
History of Present Illness *Admission Date: 01/28/23 *Reason for visit:: elevated blood pressure and headache *History of present illness: Ms Barbara Alcantara is a 22 yo P2001 who is 6 days s/p PLTCS. She states yesterday afternoon she started to have numbness and tingling in her hands followed by elevated blood pressure at home. She reports headache started around [id number] last night. She denies pain. Reports light vaginal bleeding. She is formula feeding. Denies vision changes, chest pain and shortness of breath. She states lower extremity swelling waxes and wanes. No calf pain. Upon arrival to L&D BP was 157/91 and then 154/84. [facility] Disclaimer: The information contained in this section may have been updated after the patient was seen, as this information can be updated by other users. Medical History (Updated 01/28/23 @ 09:20 by Kathy Russell DO) Acute blood loss anemia CPD (cephalo-pelvic disproportion) Delivery outcome of stillborn infant Failure to progress in labor Gestational hypertension without significant proteinuria, Headache Maternal obesity affecting , antepartum Morbid obesity with BMI of 45.0-49.9, adult Pre-eclampsia, with 37 weeks completed gestation Rubella non-immune status, antepartum Screening for genetic disease carrier status Tobacco use affecting , antepartum Surgical History S/P primary low transverse Family History Other No significant family history Social History Smoking Status: Current every day smoker tobacco type: e-cigarettes years smoked: 5 second hand exposure: No alcohol intake: never substance use type: denies use current occupational status: employed Travel in the last 8 weeks: None household members: family housing: house do you feel safe at home: Yes victim of physical abuse: No victim of emotional abuse: No victim of sexual abuse: No Review of Systems Review of Systems Review of systems:: pertinent systems reviewed and negative unless documented below Constitutional Constitutional: Reports headache(s) ENT Ears, Nose, Mouth, and Throat: Reports headache(s) *Neurologic Neurologic: Reports headache(s) Meds Home Medications and Allergies Home Medications Medication Instructions Recorded Confirmed Type sertraline 50 mg tablet 50 mg PO DAILY Depression 01/21/23 01/28/23 History oxycodone 5 mg tablet 5 mg PO Q4HP PRN Moderate Pain #20 01/24/23 01/28/23 Rx tabs ibuprofen 400 mg tablet 800 mg PO Q8HP PRN Mild To 01/28/23 01/28/23 History Moderate Pain New Prescriptions to Start Prescriptions: Allergies Allergy/AdvReac Type Severity Reaction Status Date / Time No Known Allergies Allergy Verified 01/20/23 14:12 Exam Data for Last 24 hours Vital signs and Labs for Last 24 Hours: Temp Pulse Resp BP Pulse Ox 98.1 F 85 15 110/63 98 01/28/23 04:26 01/28/23 06:20 01/28/23 06:20 01/28/23 06:20 01/28/23 05:20 Laboratory Results - last 24 hr 01/28/23 00:40: Urine Color Yellow, Urine Appearance Slightly cloudy, Urine pH 7.0, Ur Specific [place] 1.010, Urine Protein Negative, Urine Glucose (UA) Negative, Urine Ketones Negative, Urine Blood 2+, Urine Nitrate Negative, Urine Bilirubin Negative, Urine Urobilinogen 0.2, Ur Leukocyte Esterase 1+ A, Urine RBC 10-20, Urine WBC 5-10, Ur Squamous Epith Cells 5-10, Urine Bacteria 1+ 01/28/23 01:50: WBC 11.0 H, RBC 4.21, Hgb 11.4 L, Hct 35.3 L, MCV 83.9, MCH 27.0, MCHC 32.2, RDW 14.3, Plt Count 393, MPV 7.5, Neut % (Auto) 61.6, Lymph % (Auto) 30.5, [place] % (Auto) 4.0, Eos % (Auto) 3.5, Baso % (Auto) 0.4, Neut # (Auto) 6.8, Lymph # (Auto) 3.3, [place] # (Auto) 0.4, Eos # (Auto) 0.4, Baso # (Auto) 0.0 01/28/23 01:50: PT 9.0 L, INR 0.82 L, APTT 26
--- NOTE | 2023-01-28 10:00 | PC.NURSE ---
Pt is asleep in the bed at this time. pt denies any needs
--- NOTE | 2023-01-28 11:00 | PC.NURSE ---
Pt is sitting up in the bed at this time watching TV. Pt voices no needs
--- NOTE | 2023-01-28 12:30 | PC.NURSE ---
Pt is resting comfortably in the bed eating her lunch tray. Pt denies any needs. BLE DTR's +2
--- NOTE | 2023-01-28 13:02 | PC.NURSE ---
Pt is resting in the bed fixing to take a nap. no needs voiced DTR'S +2
--- NOTE | 2023-01-28 14:00 | PC.NURSE ---
Pt is asleep on her Rt side in the bed. Pt visitor voices no needs.
--- NOTE | 2023-01-28 15:10 | PC.NURSE ---
Pt is sitting up in the bed at this time. Pt denies any needs
--- NOTE | 2023-01-28 16:19 | PC.NURSE ---
Pt has rested well this shift. BLT lungs CTA, Bowel sounds present in all 4 quadrants. BLE with non-pitting edema. Pt is on RA, IV patent. DTR's +2. Pt denies headache, blurred vision, spots before her eyes, or pain
--- NOTE | 2023-01-28 17:30 | PC.NURSE ---
Pt is sitting up in the bed at this time, no needs voiced
--- NOTE | 2023-01-28 18:44 | PC.NURSE ---
Pt is resting comfortably in the bed watching TV at this time, no needs voiced
--- NOTE | 2023-01-28 19:20 | PC.NURSE ---
Patient awake and alert sitting up in bed. DTR is +1. Respirations are WNL. No complaints of headache, blurred vision, or aura.
--- NOTE | 2023-01-28 20:25 | PC.NURSE ---
Patient remains alert and oriented. DTR remains +1. Patient reports headache. Patient still denies blurred vision and aura.
--- NOTE | 2023-01-28 21:32 | PC.NURSE ---
Patient is asleep. Respirations are equal and unlabored. Respiration rate 15-17. Patient is warm and pink. Blood pressures are stable.
--- NOTE | 2023-01-28 22:39 | PC.NURSE ---
Patient is alert and awake. Patient denies headache, blurred vision, aura. DTR is +2. Patient denies any pain in her calves. Respirations are equal and unlabored. Respiration rate is WNL.
--- NOTE | 2023-01-28 23:35 | PC.NURSE ---
Patient is alert and oriented. Patient DTR +2. Respirations remain WNL.
[2023-01-29] VITALS (8 sets, daily range): BP systolic 132–141; BP diastolic 71–91; PULSE 81–98; RESP 15–18; TEMP 36.7; O2SAT 98
--- NOTE | 2023-01-29 00:35 | PC.NURSE ---
Patient awake sitting up and is alert and oriented. DTR are +2. Respirations are equal and WNL.
--- NOTE | 2023-01-29 01:35 | PC.NURSE ---
Patient awake and alert. Patient denies headache, blurred vision, aura. DTR remains unchanged at +2. Respirations are equal and unlabored and WNL.
--- NOTE | 2023-01-29 03:04 | PC.NURSE ---
Addendum entered by Jailene Broderick RN 01/29/23 03:09: Patient remain awake and alert. Respirations are equal and unlabored and rate between 15-17. Patient's DTR remains at +2. Original Note: Magnesium sulfate infusion discontinued at this time.
--- NOTE | 2023-01-29 04:28 | PC.NURSE ---
Patient remains awake and alert. Blood pressure remains WNL. Patient's DTR remain normal at +2. Respirations are equal and unlabored. Patient denies headache, blurred vision, and aura.
--- NOTE | 2023-01-29 09:22 | EXP.DC.SUM ---
General Admission date:: 01/28/23 Discharge date: 01/29/23 HPI HPI HPI: POD # 7 s/p PLTCS, preeclampsia She is feeling well. She completed 24 hours of mag sulfate. Headache resolved with medication. No complaints or concerns. Denies pain. She is formula feeding. Voiding without difficulty and passing flatus. Ambulating well ad cecilia. Hospital Course Hospital Course Hospital Course: Ms Barbara Alcantara is a 22 yo P2001 who is 6 days s/p PLTCS. She states yesterday afternoon she started to have numbness and tingling in her hands followed by elevated blood pressure at home. She reports headache started around 1114-5192 last night. She denies pain. Reports light vaginal bleeding. She is formula feeding. Denies vision changes, chest pain and shortness of breath. She states lower extremity swelling waxes and wanes. No calf pain. Upon arrival to L&D BP was 157/91 and then 154/84. She received mag sulfate for 24 hours. BP remained normotensive with occasional mild BP. Headache resolved. She feels well. Labs within normal limits. She was discharged to home with instructions to follow-up in the office in 2 days for staple removal and incision check. Will check BP at that time as well. Exam Data for Last 24 hours Vital signs and Labs for Last 24 Hours: Temp Pulse Resp BP Pulse Ox 98.0 F 85 15 139/80 98 01/29/23 04:20 01/29/23 04:20 01/29/23 04:20 01/29/23 04:20 01/29/23 04:26 Laboratory Results - last 24 hr 01/28/23 09:42: Magnesium 4.0 H I & O for Last 24 hours: Intake & Output 01/26/23 01/27/23 01/28/23 01/29/23 23:59 23:59 23:59 23:59 Intake Total 557 / 557 1649 / 1649 Output Total 7650 / 7650 1350 / 1350 Balance -7093 / -7093 299 / 299 Weight 300 lb Microbiology Reports for the Last 24 Hours: Microbiology 01/28/23 00:40 Urine,Clean Catch Urine Culture - Preliminary Constitutional Constitutional: no acute distress *Routine HEENT Exam Head: Present normocephalic and atraumatic Eye: Absent conjunctivae pink ENT: Present mucous membranes moist *Routine Neck Exam Neck: Present full ROM *Routine Respiratory Exam Respiratory: Present CTA bilaterally and normal respiratory effort *Routine Cardiovascular Exam Cardiovascular: Present RRR *Routine Abdominal Exam Abdominal: Present soft and normoactive bowel sounds; Absent tenderness or distended Comments: Pfannenstiel incision healing well *Routine Rectal Exam Patient deferred: visual exam *Routine Exam Patient deferred: external exam *Routine Extremities Exam Extremities: Present full ROM; Absent edema or calf tenderness Results Data Completed and Pending Labs on day of discharge: Labs from last 24 hours 01/28/23 09:42 Magnesium 4.0 H Preliminary micro results at discharge 01/28/23 00:40 Urine Culture - Preliminary Urine,Clean Catch DS: Diagnosis Discharge Diagnosis (1) Pre-eclampsia, : Status: Acute Code(s): O14.95 - Unspecified pre-eclampsia, complicating the puerperium (2) S/P : Status: Acute Code(s): Z98.891 - History of uterine scar from previous surgery (3) Morbid obesity with BMI of 45.0-49.9, adult: Status: Acute Code(s): E66.01 - Morbid (severe) obesity due to excess calories; Z68.42 - Body mass index [BMI] 45.0-49.9, adult (4) MDD (major depressive disorder), recurrent episode: Status: Acute Code(s): F33.9 - Major depressive disorder, recurrent, unspecified Qualifiers: Major depression episode severity: moderate Qualified Code(s): F33.1 - Major depressive disorder, recurrent, moderate (5) Tobacco user: Status: Acute Code(s): Z72.0 - Tobacco use Meds Home Medications and Allergies Home Medications Medication Instructions Recorded Confirmed Type sertraline 50 mg tablet 50 mg PO DAILY Depression 01/21/23 01/28/23 History oxycodone 5 mg tablet 5 mg PO Q4HP PRN Moder
--- NOTE | 2023-01-29 09:25 | PC.NURSE ---
IV saline lock d/c'd with catheter intact. Tolerated well. 2x2 gauze and coban applied to site.
== END 2023-01-29 10:06 | disposition home or self-care (01) ==
LOC: OBOUT 01:28 → OB 01:30
PROVIDERS: Admitting Provider Obstetrics & Gynecology; PCP Internal Medicine; Visit Provider Obstetrics & Gynecology
DX: O14.95 Unspecified pre-eclampsia, complicating the puerperium (principal); E66.01 Morbid (severe) obesity due to excess calories; Z72.0 Tobacco use; O99.345 Other mental disorders complicating the puerperium; F33.9 Major depressive disorder, recurrent, unspecified; Z68.43 Body mass index [BMI] 50.0-59.9, adult
CPT/HCPCS: 36415; 80048; 81001; 83735; 84450; 84460; 84550; 85025; 85378; 85384; 85610; 85730; 87086; 87635; 87636; C9803; G0378; J3475; U0003; U0005

== ENCOUNTER 2023-10-13 16:41 | Emergency (ER) | payer OTHER, SELFPAY ==
[2023-10-13 17:05] VITALS: BP 130/91; PULSE 84; RESP 20; TEMP 37.1; O2SAT 98; BMI 50.8
--- NOTE | 2023-10-13 17:10 | ED_ITS ---
Discharge Plan Disposition Patient Disposition: Home, Self-Care Condition: Good Prescriptions Prescriptions: New methylprednisolone 4 mg Tablets,Dose Pack 4 mg PO DIRECTED 6 Days Qty: 21 0RF Rx Instructions: Take 1 pack as directed for 6 days Referrals Follow up/Referrals: Andrews De La Garza MD [Primary Care Provider] - See instructions Activity Restrictions/Add. Instructions Additional Instructions/Restrictions: Take the medications as directed. Follow up with your regular doctor. GO TO THE ER FOR ANY WORSENING SYMPTOMS Clinical Impressions Clinical Impression: Pleurisy, Rib pain on left side, Rib pain on right side Stand Alone Forms Stand Alone Forms: Work/School Release Instructions Patient Instructions: Pleurisy, DI for Pleurisy, Methylprednisolone Discharge ED Provider: Emerson Kingsley [facility] General Stated complaint: Rib/abd pain no accident Time Seen by Provider: 10/13/23 17:10 History of Present Illness Provider Complaint: She states that for the past 2 days she has had bilateral rib pain. She denies any fever/chills/malaise. She denies cough and congestion. Related Data Previous Rx's Medication Instructions Recorded methylprednisolone 4 mg tablets in 4 mg PO DIRECTED 6 days #21 tabs 10/13/23 a dose pack Allergies Allergy/AdvReac Type Severity Reaction Status Date / Time No Known Allergies Allergy Verified 03/06/23 13:36 [facility] Disclaimer: The information contained in this section may have been updated after the patient was seen, as this information can be updated by other users. Medical History CPD (cephalo-pelvic disproportion) Delivery outcome of stillborn History of stillbirth in 2021 Headache Morbid obesity with BMI of 45.0-49.9, adult Pre-eclampsia, Surgical History S/P primary low transverse Family History Other No significant family history Social History Smoking Status: Current every day smoker tobacco type: e-cigarettes years smoked: 5 second hand exposure: No alcohol intake: never substance use type: denies use current occupational status: employed Travel in the last 8 weeks: None household members: family housing: house do you feel safe at home: Yes victim of physical abuse: No victim of emotional abuse: No victim of sexual abuse: No ROS Obtained: Yes All systems reviewed & no additional complaints except as documented Constitutional Constitutional: Denies chills and Denies fever(s) Eyes Eyes: Denies eye discharge ENT Ears, Nose, Mouth, and Throat: Denies dizziness, Denies otalgia and Denies sore throat Cardiovascular Cardiovascular: Denies chest pain Respiratory Respiratory: Denies shortness of breath, Denies chest congestion, Denies cough, Denies stridor and Denies wheezing Gastrointestinal Gastrointestingal: Denies nausea or vomiting Musculoskeletal Musculoskeletal: Reports system reviewed and no additional complaints, except as documented and Denies arthralgias Integumentary/Breasts Skin/Breast: Denies rash Neurologic Neurologic: Denies dizziness and Denies paresthesias Allergic/Immunologic Allergic/Immunologic: Denies wheezing Physical Exam General General appearance: alert and in no apparent distress Head Head exam: atraumatic, normocephalic and normal inspection Eye Eye exam: Present normal appearance, PERRL and EOMI ENT ENT exam: Present normal exam, normal oropharynx, mucous membranes moist, TM's normal bilaterally and normal external ear exam Neck Neck exam: Present normal inspection, full ROM and trachea midline; Absent meningismus or lymphadenopathy Chest Chest inspection: Present normal inspection and symmetric chest wall rise; Absent tenderness Respiratory Respiratory exam: Present normal lung sounds bilaterally; Absent respiratory distress Cardiovascular Cardiovascular exam: Present regular rate and normal rhythm; Absent JVD Abdominal Exam Abdominal exam: Present soft and normal bowel sounds; Absent distention, tenderness or guarding Extremities Exam Extremities exam: Present normal inspection, full ROM and normal capillary refill; Absent calf tenderness Back Exam Back exam: Present normal inspection; Absent tenderness Neurological Exam Neurological exam: Present alert and oriented X3 Psychiatric Psychiatric exam: Present normal affect and normal mood Skin Skin exam: Present warm, dry, intact and normal color Lymphatic Lymphatic Findings: no adenopathy Medical Decision Making Medical Records Medical records reviewed: No I reviewed the patient's medical records. Kwan Inquiry Pt receiving controlled substance: No
[2023-10-13 17:37] VITALS: BP 130/91; PULSE 84; RESP 20; TEMP 37.1; O2SAT 98
== END 2023-10-13 17:44 | disposition home or self-care (01) ==
PROVIDERS: Emergency Provider Nurse Practitioner Family; PCP Internal Medicine
DX: R09.1 Pleurisy (principal); R07.81 Pleurodynia; F17.290 Nicotine dependence, other tobacco product, uncomplicated; E66.01 Morbid (severe) obesity due to excess calories; Z68.43 Body mass index [BMI] 50.0-59.9, adult
CPT/HCPCS: 99212; 99214; G0463

== ENCOUNTER 2024-07-28 11:42 | Outpatient (CLI) | payer OTHER, SELFPAY ==
[2024-07-28 13:36] LABS: HCG,Quantitative 28721 mIU/ml (0-5.42)
== END 2024-07-28 23:59 | disposition home or self-care (01) ==
LOC: LAB 11:42
PROVIDERS: PCP Internal Medicine; Visit Provider Obstetrics & Gynecology
DX: N92.6 Irregular menstruation, unspecified (principal)
CPT/HCPCS: 36415; 84144; 84702

== ENCOUNTER 2024-08-26 11:05 | Outpatient (CLI) | payer OTHER, SELFPAY | END 2024-08-26 23:59 | LOC: LAB.DROPOF 08-27 09:08 | PROVIDERS: PCP Internal Medicine; Visit Provider Obstetrics & Gynecology | DX: Z34.00 Encounter for supervision of normal first pregnancy, unspecified trimester (principal) | CPT/HCPCS: 87086 ==

== ENCOUNTER 2024-09-03 13:43 | Outpatient (CLI) | payer OTHER, SELFPAY ==
--- NOTE | 2024-09-03 13:44 | US_ITS ---
PROCEDURE: US OB >= 14 WEEKS FETUS CLINICAL INDICATION: Dates/Anatomy COMPARISON: No exams were available for comparison FINDINGS: Transabdominal sonographic images of the pelvis were obtained. Her established due date is unknown. Single viable intrauterine gestation. Breech position. Placenta: Posteriorplacenta grade 2 the is a. There is an average amount of fluid. The cervix appears satisfactory. Closed and measuring 3.55 cm in length. Complete survey performed and was unremarkable on the submitted images as in PACS. No discrete anomalies identified on survey imaging by technologist. Active fetus. Three-vessel cord with satisfactory umbilical cord insertion. 4- chamber heart noted. Situs, aortic arch, LVOT, RVOT, three-vessel view appear normal. Survey of brain & ventricles Unremarkable. Cerebellum, thalamus, choroid plexus, cisterna magna appear normal. Face and neck survey unremarkable. Profile, nasion, lips and nose appeared normal. Diaphragm and chest views unremarkable. Abdomen: Both kidneys noted and unremarkable. Stomach and bladder noted and satisfactory. Spine: Survey of the spine satisfactory with no anomalies identified nor imaged. Cervical, thoracic, lower spine appear normal. Both arms and legs noted. Amniotic fluid index: 13.13 cm, MVP 4.67 cm Measurements: Average ultrasound age 29weeks 4days. Estimated due date by ultrasound age 0411/15/2024. Estimated weight 1,388g BPD = 28weeks 4days HC = 30weeks 3days AC = 29weeks 3days FL = 29weeks 3days Heart Rate = 143bpm Cerebellum = 27weeks 6days Humerus = 30weeks HC/AC is 1.1 FL/BPD is 0.79 FL/AC is 0.22 IMPRESSION: 1. Viable fetus in the breech presentation with a posterior placenta grade 2. 2. The fluid is within normal limits with an amniotic fluid index 13.13 cm, MVP 4.67 cm. 3. Anatomical scan appears normal. 4. Fetus measures 29 weeks and 4 days. EMERALD will be 11/15/2024. Dictated by: Rad Henriquez MD 09/03/2024 16:06 Rad Henriquez MD in [place] 09/03/2024 16:06
== END 2024-09-03 23:59 | disposition home or self-care (01) ==
LOC: RAD 13:44
PROVIDERS: PCP Internal Medicine; Visit Provider Obstetrics & Gynecology
DX: Z36.3 Encounter for antenatal screening for malformations (principal); O26.843 Uterine size-date discrepancy, third trimester; Z3A.29 29 weeks gestation of pregnancy
CPT/HCPCS: 76805

== ENCOUNTER 2024-09-08 15:23 | Outpatient (CLI) | payer OTHER, SELFPAY ==
[2024-09-08 16:55] LABS: Basophils % 0.1 % (0.1-2.0); Eosinophils # 0.1 K/mm3 (0.0-0.4); Eosinophils % 0.6 % (0.1-12.0); Hematocrit 32.8 % (37.0-47.0); Hemoglobin 10.9 g/dL (12.2-16.2); Lymphocytes # 1.3 K/mm3 (0.7-4.5); Lymphocytes % 14.2 % (10-50); Mean Corpuscular HGB Conc 33.2 g/dL (31.8-35.4); Mean Corpuscular Hemoglobin 28.8 pg (27.0-31.2); Mean Corpuscular Volume 86.5 fl (81-99); Mean Platelet Volume 9.2 fl (7.4-10.4); Monocytes # 0.5 K/mm3 (0.1-1.0); Monocytes % 5.2 % (1.7-9.3); Neutrophils # 7.5 K/mm3 (1.8-7.8); Neutrophils % 79.5 % (37.0-80.0); Platelet Count 280 K/mm3 (142-424); Red Blood Count 3.79 M/mm3 (4.20-5.40); White Blood Count 9.5 K/mm3 (4.8-10.8)
[2024-09-08 17:05] LABS: Glucose 1 Hour 151 mg/dL (74-100)
[2024-09-08 17:23] LABS: RPR W/RFX Titers Nonreactive (Nonreactive)
[2024-09-08 18:11] LABS: HIV Combo NEGATIVE (Negative)
[2024-09-08 18:20] LABS: Hepatitis C Ab Qual. W/ RFX NEGATIVE (Negative)
[2024-09-10 07:10] LABS: Hepatitis B Surface Antigen Negative (Negative)
[2024-09-10 09:10] LABS: Rubella Antibodies, IgG 1.43 index (Immune >0.99)
== END 2024-09-08 23:59 | disposition home or self-care (01) ==
LOC: LAB 15:24
PROVIDERS: PCP Internal Medicine; Visit Provider Obstetrics & Gynecology
DX: Z34.00 Encounter for supervision of normal first pregnancy, unspecified trimester (principal)
CPT/HCPCS: 36415; 82947; 85025; 86592; 86762; 86803; 86850; 87340; 87389

== ENCOUNTER 2024-09-10 11:46 | Outpatient (CLI) | payer OTHER, SELFPAY ==
[2024-09-10 12:23] LABS: Glucose,Fasting 96 mg/dl (74-100)
[2024-09-10 13:36] LABS: Glucose 1 Hour 185 mg/dL (74-100)
[2024-09-10 14:55] LABS: Glucose 2 Hour 183 mg/dL (74-100)
[2024-09-10 15:40] LABS: Glucose 3 Hour 113 mg/dL (74-100)
== END 2024-09-10 23:59 | disposition home or self-care (01) ==
LOC: LAB 11:47
PROVIDERS: PCP Internal Medicine; Visit Provider Obstetrics & Gynecology
DX: E74.39 Other disorders of intestinal carbohydrate absorption (principal)
CPT/HCPCS: 36415; 82951

== ENCOUNTER 2024-10-04 12:49 | Outpatient (CLI) | payer OTHER, SELFPAY ==
--- NOTE | 2024-10-04 12:49 | US_ITS ---
PROCEDURE: US OB BIOPHYSICAL PROFILE CLINICAL INDICATION: GDM COMPARISON: US US OB >= 14 WEEKS FETUS from 09/03/2024 FINDINGS: Transabdominal sonographic images of the uterus were obtained. From her established due date she is 34weeks 0 days. The following parameters are obtained: Viable Fetus in the BREECH presentation with a posterior placenta grade 2. Cervix measures 3.85 cm transabdominally. Measurements: heart Rate = 153bpm Amniotic fluid index: 18.6cm, MVP 5.60 cm. Qualitative AFV:2 Breathing movements: 2 Gross Body Movements: 2 Tone: 2 Biophysical profile score: 8 No obvious anomalies evident.Kidneys, bladder, stomach, four-chamber heart appear normal. IMPRESSION: 1. Viable fetus in the breech presentation with a posterior placenta grade 2. 2. The fluid is within normal limits with amniotic fluid index 18.6 cm, MVP 5.60 cm. 3. Biophysical profile 8/8 with good breathing movement and movement seen. 4. Limited anatomical scan appears normal. Dictated by: Rad Henriquez MD 10/04/2024 15:44 Rad Henriquez MD in [facility] 10/04/2024 15:44
== END 2024-10-04 23:59 | disposition home or self-care (01) ==
LOC: RAD 12:49
PROVIDERS: PCP Internal Medicine; Visit Provider Obstetrics & Gynecology
DX: O24.414 Gestational diabetes mellitus in pregnancy, insulin controlled (principal); O09.293 Supervision of pregnancy with other poor reproductive or obstetric history, third trimester; O09.33 Supervision of pregnancy with insufficient antenatal care, third trimester; Z3A.34 34 weeks gestation of pregnancy
CPT/HCPCS: 76819

== ENCOUNTER 2024-10-08 15:19 | Outpatient (CLI) | payer OTHER, SELFPAY ==
[2024-10-08 16:35] LABS: Basophils % 0.2 % (0.1-2.0); Eosinophils # 0.1 K/mm3 (0.0-0.4); Eosinophils % 0.7 % (0.1-12.0); Hematocrit 32.1 % (37.0-47.0); Hemoglobin 10.5 g/dL (12.2-16.2); Lymphocytes # 1.4 K/mm3 (0.7-4.5); Lymphocytes % 11.1 % (10-50); Mean Corpuscular HGB Conc 32.7 g/dL (31.8-35.4); Mean Corpuscular Hemoglobin 27.7 pg (27.0-31.2); Mean Corpuscular Volume 84.7 fl (81-99); Mean Platelet Volume 9.5 fl (7.4-10.4); Monocytes # 0.6 K/mm3 (0.1-1.0); Neutrophils # 10.1 K/mm3 (1.8-7.8); Neutrophils % 82.5 % (37.0-80.0); Platelet Count 329 K/mm3 (142-424); Red Blood Count 3.79 M/mm3 (4.20-5.40); White Blood Count 12.3 K/mm3 (4.8-10.8)
[2024-10-08 16:46] LABS: INR 0.87 (0.9-1.1); Prothrombin Time 9.9 seconds (10.1-12.5)
[2024-10-08 17:07] LABS: Alanine Aminotransferase 22 U/L (12-78); Albumin Level 3.4 g/dl (3.5-5.0); Albumin/Globulin Ratio 1.2 (1.1-1.8); Alkaline Phosphatase 109 U/L (38-126); Anion Gap 12.9 mEq/L (5-15); Aspartate Amino Transferase 22 U/L (14-36); Bilirubin,Total 0.2 mg/dl (0.2-1.3); Blood Urea Nitrogen 8 mg/dl (7-17); Calcium 9.2 mg/dl (8.4-10.2); Carbon Dioxide 19 mmol/L (22.0-30.0); Chloride 105 mmol/L (98-107); Estimated Glomerular Filt Rate 153 ml/min (>60); GFR (African American) 185 ML/MIN (>60); Globulin 2.9 g/dL (1.3-3.2); Glucose 129 mg/dl (74-100); Lactate Dehydrogenase 195 U/L (313-618); Potassium 3.9 mmoL/L (3.5-5.1); Sodium 133 mmol/L (136-145); Total Protein,Serum 6.3 g/dl (6.3-8.2); Uric Acid 4.3 mg/dl (2.5-6.2)
[2024-10-08 19:41] LABS: Total Protein 24 Hour,Urine 338 mg/24 hr (40-90); Total Volume,Urine 2250 mL (600-1600)
== END 2024-10-08 23:59 | disposition home or self-care (01) ==
LOC: LAB 15:20
PROVIDERS: PCP Internal Medicine; Visit Provider Obstetrics & Gynecology
DX: O09.299 Supervision of pregnancy with other poor reproductive or obstetric history, unspecified trimester (principal); O24.414 Gestational diabetes mellitus in pregnancy, insulin controlled; O13.9 Gestational [pregnancy-induced] hypertension without significant proteinuria, unspecified trimester
CPT/HCPCS: 36415; 80053; 83615; 84155; 84550; 85025; 85610; 85730

== ENCOUNTER 2024-10-11 12:48 | Outpatient (CLI) | payer OTHER, SELFPAY ==
--- NOTE | 2024-10-11 12:48 | US_ITS ---
PROCEDURE: US OB BIOPHYSICAL PROFILE CLINICAL INDICATION: GDM COMPARISON: US US OB >= 14 WEEKS FETUS from 09/03/2024 US US OB BIOPHYSICAL PROFILE from 10/04/2024 FINDINGS: Transabdominal sonographic images of the uterus were obtained. From her established due date she is 35weeks 0 days. The following parameters are obtained: Viable Fetus in the cephalic presentation with a posterior placenta grade 2. Average ultrasound age is 37weeks 1day Estimated weight 3,112g, 6 lb 14 oz Cervix measures 4.29 cm Measurements: heart Rate = 146bpm BPD = 37weeks 0 days, 93 percentile HC = 38weeks 2days, 88 percentile AC = 37weeks 5days, >98 percentile FL = 35weeks 4days, 57 percentile HC/AC is 0.99 FL/BPD is 0.76 FL/AC is 0.21 94 percentile Amniotic fluid index: 15.75cm, MVP 4.38 cm. Breathing movements: 2 Gross Body Movements: 2 Tone: 2 Biophysical profile score: 8 No obvious anomalies evident.Kidneys, profile, stomach, bladder, four-chamber heart, three-vessel cord appear normal. IMPRESSION: 1. Viable fetus in the cephalic presentation with a posterior placenta grade 2. 2. The fluid is within normal limits with an amniotic fluid index 15.75 cm, MVP 4.38 cm. 3. Biophysical profile is 8/8 with good breathing movement and movement seen. 4. There has been accelerated growth with the abdominal circumference 3 weeks ahead. 5. Limited anatomical scan appears normal. Dictated by: Rad Henriquez MD 10/11/2024 13:50 Rad Henriquez MD in [facility] 10/11/2024 13:50
== END 2024-10-11 23:59 | disposition home or self-care (01) ==
LOC: RAD 12:48
PROVIDERS: PCP Obstetrics & Gynecology; Visit Provider Obstetrics & Gynecology
DX: O24.414 Gestational diabetes mellitus in pregnancy, insulin controlled (principal); O13.3 Gestational [pregnancy-induced] hypertension without significant proteinuria, third trimester; O99.213 Obesity complicating pregnancy, third trimester; O09.293 Supervision of pregnancy with other poor reproductive or obstetric history, third trimester; O09.33 Supervision of pregnancy with insufficient antenatal care, third trimester; Z98.891 History of uterine scar from previous surgery; Z3A.35 35 weeks gestation of pregnancy
CPT/HCPCS: 76816; 76819

== ENCOUNTER 2024-10-18 12:49 | Outpatient (CLI) | payer OTHER, SELFPAY ==
--- NOTE | 2024-10-18 12:52 | US_ITS ---
PROCEDURE: US OB BIOPHYSICAL PROFILE CLINICAL INDICATION: GDM COMPARISON: US US OB >= 14 WEEKS FETUS from 09/03/2024 US US OB BIOPHYSICAL PROFILE from 10/04/2024 US US OB BIOPHYSICAL PROFILE from 10/11/2024 FINDINGS: Transabdominal sonographic images of the uterus were obtained. From her established due date she is 36weeks 0 days. The following parameters are obtained: Viable Fetus in the cephalic presentation with a posterior placenta grade 2. Cervix measures 4.45 cm in length. Measurements: heart Rate = 163bpm Amniotic fluid index: 14.44cm, MVP 4.33 cm Qualitative AFV:2 Breathing movements: 2 Gross Body Movements: 2 Tone: 2 Biophysical profile score: 8 No obvious anomalies evident.Kidneys, profile, stomach, bladder, four-chamber heart, three-vessel cord appear normal. IMPRESSION: 1. Viable fetus in the cephalic presentation with a posterior placenta grade 2. 2. The fluid is within normal limits with an amniotic fluid index 14.44 cm, MVP 4.33 cm. 3. Biophysical profile is 8/8 with good breathing movement and movement seen. 4. Limited anatomical scan appears normal. Dictated by: Rad Henriquez MD 10/18/2024 14:11 Rad Henriquez MD in [facility] 10/18/2024 14:11
== END 2024-10-18 23:59 | disposition home or self-care (01) ==
LOC: RAD 12:50
PROVIDERS: PCP Obstetrics & Gynecology; Visit Provider Obstetrics & Gynecology
DX: O24.414 Gestational diabetes mellitus in pregnancy, insulin controlled (principal); O99.213 Obesity complicating pregnancy, third trimester; O09.293 Supervision of pregnancy with other poor reproductive or obstetric history, third trimester; O09.33 Supervision of pregnancy with insufficient antenatal care, third trimester; O99.333 Smoking (tobacco) complicating pregnancy, third trimester; F17.290 Nicotine dependence, other tobacco product, uncomplicated; O99.323 Drug use complicating pregnancy, third trimester; F12.90 Cannabis use, unspecified, uncomplicated; Z3A.36 36 weeks gestation of pregnancy
CPT/HCPCS: 76819

== ENCOUNTER 2024-10-25 04:46 | Inpatient (IN) | payer OTHER, SELFPAY ==
[2024-10-25] VITALS (9 sets, daily range): BP systolic 121–138; BP diastolic 71–82; PULSE 75–93; RESP 16–21; TEMP 36.4–36.8; O2SAT 98–100; BMI 51.5
[2024-10-25 05:55] LABS: Chloride 110 mmol/L (98-107); Sodium 136 mmol/L (136-145)
[2024-10-25 05:56] LABS: Potassium 3.3 mmoL/L (3.5-5.1)
[2024-10-25 05:58] LABS: Blood Urea Nitrogen 6 mg/dl (7-17); Creatinine Clearance Estimated 189 mL/min (50-200); Estimated Glomerular Filt Rate 198 ml/min (>60); GFR (African American) 239 ML/MIN (>60)
[2024-10-25 05:59] LABS: Anion Gap 9.3 mEq/L (5-15); Calcium 8.9 mg/dl (8.4-10.2); Carbon Dioxide 20 mmol/L (22.0-30.0); Glucose 100 mg/dl (74-100)
[2024-10-25 06:12] LABS: Basophils % 0.2 % (0.1-2.0); Eosinophils # 0.1 K/mm3 (0.0-0.4); Eosinophils % 0.9 % (0.1-12.0); Hematocrit 30.9 % (37.0-47.0); Hemoglobin 10.2 g/dL (12.2-16.2); Lymphocytes # 2.2 K/mm3 (0.7-4.5); Lymphocytes % 19.5 % (10-50); Mean Corpuscular Hemoglobin 27.6 pg (27.0-31.2); Mean Corpuscular Volume 83.7 fl (81-99); Mean Platelet Volume 9.4 fl (7.4-10.4); Monocytes # 0.8 K/mm3 (0.1-1.0); Monocytes % 6.8 % (1.7-9.3); Neutrophils # 7.9 K/mm3 (1.8-7.8); Neutrophils % 71.6 % (37.0-80.0); Platelet Count 263 K/mm3 (142-424); Red Blood Count 3.69 M/mm3 (4.20-5.40); Red Cell Distribution Width 13.5 % (11.5-17.5)
[2024-10-25 06:37] LABS: Microscopic, Urine URINE MICROSCOPIC (MICROSCOPIC)
[2024-10-25 06:48] LABS: Appearance,Urine Clear (Clear); Color,Urine Yellow (Yellow)
[2024-10-25 06:49] LABS: Bilirubin,Urine Negative (Negative); Blood, Urine Negative (Negative); Glucose,Urine (UA) Negative (Negative); Ketones,Urine Negative (Negative); Leukocyte Esterase,Urine Negative (Negative); Nitrate,Urine Negative (Negative); Protein,Urine Negative (Negative); Urobilinogen,Urine 0.2 EU/dl (0.2)
[2024-10-25 06:53] LABS: Bacteria,Urine 2+ /lpf; Specific Gravity, Urine >= 1.030 (1.005-1.030); WBC,Urine Occasional #/hpf (0-3)
[2024-10-25 06:58] LABS: Benzodiazepines Screen,Urine Negative ng/ml (<200)
[2024-10-25 06:59] LABS: Amphetamine/Metha Screen,Urine Negative ng/ml (<1000); Barbiturates Screen,Urine Negative ng/ml (<200)
[2024-10-25 07:00] LABS: Methadone Screen,Urine Negative ng/ml (<300)
[2024-10-25 07:01] LABS: Cannabinoid Screen,Urine Negative ng/ml (<50); Cocaine Screen,Urine Negative ng/ml (<300)
[2024-10-25 07:02] LABS: Opiate Screen,Urine Negative ng/ml (<300)
[2024-10-25 07:03] LABS: Phencyclidine Screen,Urine Negative ng/ml (<25)
[2024-10-25 07:20] LABS: POC Glucose,Bedside 105 (70-110)
--- NOTE | 2024-10-25 07:24 | EXP.ANES.CKL ---
[facility] Disclaimer: The information contained in this section may have been updated after the patient was seen, as this information can be updated by other users. Medical History Pre-eclampsia in third trimester Maternal obesity affecting , antepartum Gestational diabetes mellitus (GDM) requiring insulin Glucose intolerance Request for sterilization History of pre-eclampsia in prior , currently Use of nicotine during Late care affecting Marijuana use during Pre-eclampsia, CPD (cephalo-pelvic disproportion) Headache Morbid obesity with BMI of 45.0-49.9, adult Delivery outcome of stillborn History of stillbirth in 2021 Surgical History History of S/P primary low transverse Family History Other No significant family history Social History (Updated 10/25/24 @ 05:53 by Kimberly Echavarria RN) Smoking Status: Former smoker tobacco type: e-cigarettes years smoked: 5 second hand exposure: No alcohol intake: never substance use type: denies use current occupational status: employed Travel in the last 8 weeks: None household members: family housing: house do you feel safe at home: Yes victim of physical abuse: No victim of emotional abuse: No victim of sexual abuse: No Have you lived/traveled outside [place] in past 30 days?: No Contact w/someone who lives/traveled outside [place] past 30 days?: No Exposure to someone with infectious disease in past 14 days?: No Do you have a fever (greater than 100.4 F or 38 C)?: No Have you tested positive for COVID-19: No Exposed to someone with COVID-19 in past 14 days?: No Do you have a sore throat?: No Do you have a cough?: No Do you have any weakness?: No Are you experiencing any nausea/vomitting?: No Do you have any diarrhea?: No Are you experiencing any unusual bleeding?: No Do you have any muscle aches/pain?: No Do you have any abdominal pain?: No Are you experiencing loss of taste or smell?: No [facility] Anesthesia Checklist Patient Identification Patient Identification: Arm Band Structural Data Admitted From: Inpatient Planned Operative Procedure/s: Repeat C/S Consent for Planned Operative Procedure(s) Verified: Yes Verified Documents: Surgical Consent and History and Physical NPO Status Verified Time NPO: 00:00 Additional verifications Anesthesia Reactions: No Airway Assessment Mallampati Score:: Class II C-Spine Mobility Assessed: Yes TMJ Mobility Assessed: Yes Dentition: Good Dentition Neurological Assessment Level of Consciousness: Awake, Alert and Appropriate Anesthesia Plan Anesthesia Risk discussed: Yes Anesthesia Plan: Verified ASA Class: III Anesthesia Type: Spinal (with Bilateral TAP Block)
[2024-10-25] MEDS: CEFAZOLIN SODIUM 3 GM in 0.9 % SODIUM CHLORIDE 100 ML IV (07:27)
--- NOTE | 2024-10-25 07:32 | P.HP_ITS ---
OB - H&P: HPI Antepartum History of Present Illness Chief complaint: Scheduled repeat History of present illness: Ms Barbara Alcantara is a 23 yo at 37w0d who presents to [facility] for scheduled repeat secondary to preeclampsia. Mild range blood pressures with 24 hr urine protein 334. She is taking Labetalol 100 mg PO daily. She had late care, 28 weeks. complicated by maternal obesity and GDMA2. She was taking 10 units NPH at bedtime. History of stillbirth at 34 weeks. History of x 1 and preeclampsia and GDM in prior . She is complete with childbearing and desires permanent sterilization. History of Present Criteria for establishing EDC:: based on 3rd trimester US only care: limited care Obstetrical complications: gestational diabetes and preeclampsia Labs Blood type: A (+) positive Rubella: immune RPR/VDRL: nonreactive GBS status: unknown HBsAG: negative [facility] Disclaimer: The information contained in this section may have been updated after the patient was seen, as this information can be updated by other users. Medical History Pre-eclampsia in third trimester Maternal obesity affecting , antepartum Gestational diabetes mellitus (GDM) requiring insulin Glucose intolerance Request for sterilization History of pre-eclampsia in prior , currently Use of nicotine during Late care affecting Marijuana use during Pre-eclampsia, CPD (cephalo-pelvic disproportion) Headache Morbid obesity with BMI of 45.0-49.9, adult Delivery outcome of stillborn infant History of stillbirth in 2021 Surgical History History of S/P primary low transverse Family History Other No significant family history Social History (Updated 10/25/24 @ 05:53 by Kimberly Echavarria RN) Smoking Status: Former smoker tobacco type: e-cigarettes years smoked: 5 second hand exposure: No alcohol intake: never substance use type: denies use current occupational status: employed Travel in the last 8 weeks: None household members: family housing: house do you feel safe at home: Yes victim of physical abuse: No victim of emotional abuse: No victim of sexual abuse: No Have you lived/traveled outside US in past 30 days?: No Contact w/someone who lives/traveled outside [place] past 30 days?: No Exposure to someone with infectious disease in past 14 days?: No Do you have a fever (greater than 100.4 F or 38 C)?: No Have you tested positive for COVID-19: No Exposed to someone with COVID-19 in past 14 days?: No Do you have a sore throat?: No Do you have a cough?: No Do you have any weakness?: No Are you experiencing any nausea/vomitting?: No Do you have any diarrhea?: No Are you experiencing any unusual bleeding?: No Do you have any muscle aches/pain?: No Do you have any abdominal pain?: No Are you experiencing loss of taste or smell?: No Other Medical History Have you received the Flu Vaccine for this season: No Have you received the Pneumonia Vaccine: No Review of Systems Review of Systems Review of systems:: pertinent systems reviewed and negative unless documented below Meds Home Medications and Allergies Home Medications ?Medication ?Instructions ?Recorded ?Confirmed ?Type vits no.126-ferrous fum 1 tab PO DAILY #30 tabs 08/26/24 10/25/24 Rx 28 mg iron-folic acid 800 mcg tablet (Classic ) blood sugar diagnostic (Accu-Chek #100 ea 09/14/24 10/25/24 Rx SmartView Test Strips) blood-glucose meter (Accu-Chek #1 ea 09/14/24 10/25/24 Rx Guide Glucose Meter) lancing device with lancets kit #1 ea 09/14/24 10/25/24 Rx (Accu-Chek Softclix Lancing Device+Lancets kit) insulin NPH isoph U-100 human 100 10 unit (0.1 mL) SQ HS #6 mL 09/24/24 10/25/24 Rx unit/mL subcutaneous suspension (Novolin N NPH U-100 Insulin isophane) labetalol 100 mg tablet 100 mg PO DAILY #30 tabs 10/15/24 10/25/24 Rx New Prescriptions to Start Prescriptions: Allergies Allergy/AdvReac Type Severity Reaction Status Date / Time No Known Allergies Allergy Verified 10/25/24 05:16 OB - H&P: Exam Physical Exam Vital signs: Temp Pulse Resp BP Pulse Ox O2 Del Method 98.0 F 93 H 21 123/71 98 Room Air 10/25/24 04:59 10/25/24 04:59 10/25/24 04:59 10/25/24 04:59 10/25/24 04:59 10/25/24 04:59 Constitutional no acute distress and obese Routine HEENT Exam Head: Present normocephalic and atraumatic Eye: Absent conjunctivae pink ENT: Present mucous membranes moist Routine Neck Exam Present full ROM Routine Respiratory Exam Present CTA bilaterally and normal respiratory effort Routine Cardiovascular Exam Present RRR Routine Abdominal Exam Present soft (Gravid); Absent tenderness Routine Rectal Exam Patient deferred: visual exam Routine Exam External: Present normal urethra appearance; Absent erythema, swelling, tenderness, lesions, lacerations or vulvar erythema Routine Extremities Exam Present full ROM; Absent edema or calf tenderness Routine Neurological Exam Present alert, moving all extremities and normal speech Routine Psychiatric Exam Present normal affect and cooperative OB - Results Labs Labs: Short CBC 10/25/24 Range/Units 05:30 WBC 11.0 H (4.8-10.8) K/mm3 Hgb 10.2 L (12.2-16.2) g/dL Hct 30.9 L (37.0-47.0) % Plt Count 263 (142-424) K/mm3 BMP 10/25/24 05:30 Sodium 136 Potassium 3.3 L Chloride 110 H Carbon Dioxide 20 L BUN 6 L Creatinine 0.40 L Glucose 100 Calcium 8.9 Urine 10/25/24 Range/Units 05:50 Urine Color Yellow (Yellow) Urine Appearance Clear (Clear) Urine pH 6.0 (5.0-8.5) Ur Specific [place] >= 1.030 (1.005-1.030) Urine Protein Negative (Negative) Urine Glucose (UA) Negative (Negative) OB - A/P Antepartum (1) Pre-eclampsia in third trimester: Status: Acute (2) Gestational diabetes mellitus (GDM) requiring insulin: Status: Acute (3) Maternal obesity affecting , antepartum: Status: Acute (4) History of : Status: Acute (5) History of pre-eclampsia in prior , currently : Status: Acute (6) Use of nicotine during : Status: Acute (7) Late care affecting : Status: Acute (8) Marijuana use during : Status: Acute (9) History of gestational diabetes mellitus (GDM): Status: Acute (10) Request for sterilization: Status: Acute Additional Plan Additional Information:: Admit to [facility] L&D for scheduled repeat , bilateral salpingectomy Reviewed risks, benefits, alternatives, expectations and possible complications. All questions addressed and answered. She voiced understanding of risks and possible complications. Consent form signed. Proceed with repeat , bilateral salpingectomy
--- NOTE | 2024-10-25 08:31 | HMH.PHAINT1 ---
Pharmacy Intervention Comments: MEDICATION RECONCILIATION COMPLETED ON PATIENT USING EXTERNAL FILL HISTORY FROM PHARMACY. -RAISSA LIU, VALENTÍND
--- NOTE | 2024-10-25 09:20 | EXP.OP.NOTE ---
Date of procedure: 10/25/24 Pre-op Diagnosis:: 1. Preeclampsia without severe features 2. GDMA2 3. Maternal obesity 4. History of x 1 5. Nicotine use in 6. Marijuana use in 7. Hx of GDM in prior 8. Hx of preeclampsia in prior 9. Complete with childbearing and desires permanent sterilization Post-op Diagnosis:: 1. Preeclampsia without severe features 2. GDMA2 3. Maternal obesity 4. History of x 1 5. Nicotine use in 6. Marijuana use in 7. Hx of GDM in prior 8. Hx of preeclampsia in prior 9. Complete with childbearing and desires permanent sterilization Procedure performed:: Repeat Low Transverse section and bilateral salpingectomy Surgeon:: Kathy Russell DO President And Chief Executive Officer(s):: Rad Henriquez MD CHUTE PULLER:: Catracho Gill Anesthesia: spinal Estimated blood loss (mL): 500 Clinical Note:: Ms Barbara Alcantara is a 23 yo at 37w0d who presents to [facility] for scheduled repeat secondary to preeclampsia. Mild range blood pressures with 24 hr urine protein 334. She is taking Labetalol 100 mg PO daily. She had late care, 28 weeks. complicated by maternal obesity and GDMA2. She was taking 10 units NPH at bedtime. History of stillbirth at 34 weeks. History of x 1 and preeclampsia and GDM in prior . She is complete with childbearing and desires permanent sterilization. Operative findings:: 1. Live female baby, Misty, weighing 8 lb 0z. APGARs 7 (1 min), 8 (5 min) 2. Grossly normal appearing uterus, bilateral fallopian tubes and ovaries Operative note:: The risks, benefits and alternatives of the procedure were reviewed with the patient. Informed consent was obtained. Patient was taken to the operating room where spinal anesthesia was placed. The patient received 3 grams of Ancef preoperatively. Patient was placed in dorsal supine position with a leftward tilt. SCDs in place. Dickinson catheter had been placed and was draining clear urine prior to the start of the procedure. heart tones were obtained. Patient was then prepped and draped in normal sterile fashion. Allis clamp test was performed to ensure adequate anesthesia. A Pfannenstiel skin incision was made along existing Pfannenstiel scar. This was carried through to underlying layer of fascia. Fascia was incised in midline, extended laterally with Sarmiento scissors. Superior aspect of fascial incision was grasped with two Lalo clamps, elevated up, and rectus muscle dissected off bluntly and sharply with Sarmiento scissors. The retcus muscle was then in the midline and the peritoneum was entered bluntly with a digit. Peritoneal incision was then extended superiorly and inferiorly with good visualization of the bladder. Duran retractor was inserted. The lower uterine segment was incised in a transverse fashion. Clear amniotic fluid was noted. Head was delivered without difficulty. Remainder of body was delivered without difficulty. Mouth and nares were bulb suctioned. Spontaneous cry was noted. Delayed cord clamping was performed for 60 seconds. The umbilical cord was clamped and cut. The was handed to awaiting pediatric staff in stable condition. Dr. Padilla was present. Apgars were 7 (1 min), 8 (5 min). Cord blood was obtained. Gentle traction on the umbilical cord and uterine fundal massage delivered the placenta. Placenta was intact. Placenta will be sent to pathology for review. Uterus was cleared of all clots and debris with a moist laparotomy sponge. Corners of the uterine incision were grasped with Allis clamps. The uterine incision was reapproximated with # 1 Vicryl suture in a running, locked stitch. Second layer of the same stitch was used to imbricate the incision. Vesicouterine peritoneum was reapproximated in a running locked stitch with 2-0 Vicryl suture. Hemostasis was noted. Posterior cul-de-sac was cleaned with moist laparotomy sponge. Gutters cleared of all clots and debris with a moist laparotomy sponge. Reinspection of the lower uterine segment demonstrated hemostasis. Attention was then turned to the left fallopian tube, which was grasped with a Derrell clamp. Enseal device was used to clamp, ligate and transect the right mesosalpinx and fallopian tube at uterine cornua,. Same procedure was carried out on the contralateral side. Specimens will be sent to pathology for review. At this point all instruments and sponges were removed from the pelvis.? The peritoneum was grasped with Telma clamps x 3. The peritoneum was reapproximated with 0 Vicryl suture in a running stitch. The corners of the fascia were grasped with Lalo clamps, and the fascia was reapproximated with two # 1 Vicryl suture overlapped to the right of midline. Subcutaneous tissue was irrigated with clear return of fluids. The subcutaneous tissue was reapproximated with 3-0 Vicryl. The skin was reapproximated with Insorb adam. Telfa was placed over closed Pfannenstiel skin incision. At the end of the procedure, the uterus was firm with minimal vaginal bleeding. Patient tolerated the procedure well. Instrument, sponges and needle counts were correct x 2. Mom and baby were transported to recovery room in stable condition. Condition: stable Disposition: floor Specimens:: 1. Placenta and umbilical cord 2. Cord blood 3. Bilateral fallopian tubes Complications:: None
--- NOTE | 2024-10-25 09:21 | P.PNANES_ITS ---
[facility] Anesthesia Record Part I Anesthesia Record I Intake, IV Amount: 2,000 Hydration: Adequate Estimated blood loss (mL): 500 Urine output (mL): 300 Blood Products used (#): none Blood Pressure: 138/73 SaO2: 100 Pulse Rate: 85 Airway Patency: Patent Respiratory Rate: 16 Temperature: 97.6 F Patient is:: Drowsy and Stable Stable to PACU at:: 09:05
[2024-10-25] MEDS: MEPERIDINE 25MG/ML 1ML SYRINGE 12.5 MG IV (10:00)
[2024-10-25] MEDS: OXYTOCIN/RINGERS LACTATE 30 UNITS/500 ML BAG 40 UNITS IV (10:00)
[2024-10-25 10:49] LABS: RPR W/RFX Titers Nonreactive (Nonreactive)
[2024-10-25] MEDS: ACETAMINOPHEN 500MG TAB 1000 MG PO ×3 (11:53→23:34)
--- NOTE | 2024-10-25 12:16 | P.PNANES_ITS ---
[facility] Anesthesia Record Part II Anesthesia Record Part II Discharge Time: 09:25 Destination: Obstetric PACU nurse assessment reviewed?: Yes Patient Condition:: Good Anesthesia Complications:: None Swallowing reflex intact?: Yes Airway Patency: Patent Cyanosis?: No Blood Pressure: 127/82 SaO2: 100 Respiratory Rate: 17 Pulse Rate: 84 Temperature: 98.1 F Mental Status: Alert & Oriented Pain level:: 0 Nausea and/or vomitting:: None Intake, IV Amount: 0 Hydration: Adequate
[2024-10-25] MEDS: KETOROLAC 30MG/ML VIAL 30 MG IV ×2 (15:22→20:58)
[2024-10-25] MEDS: CEFAZOLIN SODIUM 2 GM in 0.9 % SODIUM CHLORIDE 100 ML IV ×2 (16:30→23:34)
[2024-10-25] MEDS: PRENATAL MULTIVITAMIN W/IRON 1 EACH PO (18:20)
[2024-10-25] MEDS: SODIUM CHLORIDE 0.9% 10ML FLUSH SYRINGE 10 ML IV (20:59)
[2024-10-26 03:42] VITALS: BP 134/76; PULSE 83; RESP 17; TEMP 36.7
[2024-10-26 06:55] LABS: Basophils % 0.3 % (0.1-2.0); Eosinophils # 0.2 K/mm3 (0.0-0.4); Hemoglobin 10.8 g/dL (12.2-16.2); Lymphocytes # 2.2 K/mm3 (0.7-4.5); Mean Corpuscular HGB Conc 32.7 g/dL (31.8-35.4); Mean Corpuscular Hemoglobin 27.8 pg (27.0-31.2); Mean Corpuscular Volume 84.8 fl (81-99); Mean Platelet Volume 9.3 fl (7.4-10.4); Monocytes # 1.1 K/mm3 (0.1-1.0); Neutrophils # 11.8 K/mm3 (1.8-7.8); Platelet Count 250 K/mm3 (142-424); Red Blood Count 3.89 M/mm3 (4.20-5.40); Red Cell Distribution Width 13.8 % (11.5-17.5); White Blood Count 15.3 K/mm3 (4.8-10.8)
[2024-10-26 07:04] LABS: MANUAL DIFFERENTIAL MANUAL DIFFERENTIAL (MANUAL DIFF)
[2024-10-26 07:56] VITALS: BP 152/67; PULSE 94; RESP 18; TEMP 36.8; O2SAT 98
[2024-10-26 08:12] LABS: Eosinophils % 1 % (0-3); Lymphocytes % 16 % (10-50); Monocytes % 3 % (2-9); Neutrophils % 80 % (42-76); Platelet Estimate Normal; RBC Morphology Normal; Total Cells Counted 100
--- NOTE | 2024-10-26 09:08 | P.PN_ITS ---
Subjective *Date: 10/26/24 *Time: 09:08 Interval history: POD# 1 s/p RLTCS, BS Feeling well. Pain controlled. Formula feeding. Lochia is appropriate. Voiding without difficulty and passing flatus. Tolerating regular diet. Denies fever/chills, chest pain and shortness of breath. No headaches, vision changes, lightheadedness/dizziness. No lower extremity swelling. Ambulating well ad cecilia. Medical Exam Vital signs and Labs for Last 24 Hours: Vital Signs Temp Pulse Pulse Resp BP BP Pulse Ox 10/26/24 07:56 98.2 F 94 H 18 152/67 H 98 10/26/24 03:42 98.0 F 83 17 134/76 10/25/24 12:17 17 10/25/24 09:30 98.1 F 84 18 127/82 100 10/25/24 09:25 84 17 127/82 100 10/25/24 09:23 97.6 F 85 16 138/73 10/25/24 09:15 75 17 121/80 100 O2 Del Method 10/26/24 07:56 Room Air 10/26/24 03:42 10/25/24 12:17 10/25/24 09:30 Room Air 10/25/24 09:25 Room Air 10/25/24 09:23 10/25/24 09:15 Room Air Laboratory Results - last 24 hr 10/25/24 05:30: RPR w/Rflx to Titer Nonreactive 10/26/24 06:45: WBC 15.3 H D, RBC 3.89 L, Hgb 10.8 L, Hct 33.0 L, MCV 84.8, MCH 27.8, MCHC 32.7, RDW 13.8, Plt Count 250, MPV 9.3, Neut % (Auto) 77.0, Lymph % (Auto) 14.0, [place] % (Auto) 7.0, Eos % (Auto) 1.0, Baso % (Auto) 0.3, Neut # (Auto) 11.8 H, Lymph # (Auto) 2.2, [place] # (Auto) 1.1 H, Eos # (Auto) 0.2, Baso # (Auto) 0.0, Total Counted 100, Neutrophils % (Manual) 80 H, Lymphocytes % (Manual) 16, Monocytes % (Manual) 3, Eosinophils % (Manual) 1, Platelet Estimate Normal, RBC Morphology Normal I & O for Labs for Last 24 Hours: Intake & Output 10/23/24 10/24/24 10/25/24 10/26/24 23:59 23:59 23:59 23:59 Intake Total 1999 / 1999 Output Total 600 / 600 Balance 1400 / 1400 Weight 300 lb 0.01 oz Head: Present atraumatic and normocephalic ENT: Present normal exam Neck: Present normal inspection and full ROM Respiratory: Present CTA bilaterally and normal respiratory effort Cardiac: Present Reg Rate and Rhythm GI: Present soft; Absent distention or tenderness Comments:: Pfannenstiel incision diane/dry/intact with steri strips in place Rectal (female): Present deferred (female): Present deferred Extremities: Present normal inspection and full ROM; Absent edema or calf tenderness Neuro: Present alert, awake and moves all extremities Assessment and Plan *Assessment and plan (1) S/P : Status: Acute Category: Surgical Code(s): Z98.891 - History of uterine scar from previous surgery (2) Pre-eclampsia in third trimester: Status: Acute Category: Medical Code(s): O14.93 - Unspecified pre-eclampsia, third trimester (3) Gestational diabetes mellitus (GDM) requiring insulin: Status: Acute Category: Medical Code(s): O24.414 - Gestational diabetes mellitus in , insulin controlled (4) Maternal obesity affecting , antepartum: Status: Acute Qualifiers: Obesity type affecting : unspecified obesity Qualified Code(s): O99.210 - Obesity complicating , unspecified trimester Category: Medical Code(s): O99.210 - Obesity complicating , unspecified trimester (5) History of : Status: Acute Category: Surgical Code(s): Z98.891 - History of uterine scar from previous surgery (6) Use of nicotine during : Status: Acute Category: Medical Code(s): O99.330 - Smoking (tobacco) complicating , unspecified trimester (7) Marijuana use during : Status: Acute Category: Medical Code(s): O99.320 - Drug use complicating , unspecified trimester; F12.90 - Cannabis use, unspecified, uncomplicated (8) Late care affecting : Status: Acute Qualifiers: Trimester: third trimester Qualified Code(s): O09.33 - Supervision of with insufficient care, third trimester Category: Medical Code(s): O09.30 - Supervision of with insufficient care, unspecified trimester (9) Request for sterilization: Status: Acute Category: Medical Code(s): Z30.2 - Encounter for sterilization Plan Continue routine care Encouraged increased ambulation AM Hgb 10.8 (10.2 on admission) Plan d/c home tomorrow
[2024-10-26] MEDS: IBUPROFEN 400 MG TABLET 800 MG PO ×2 (10:38→21:05)
[2024-10-26] MEDS: ACETAMINOPHEN 500MG TAB 1000 MG PO ×2 (10:38→16:28)
[2024-10-26 12:18] VITALS: BP 139/90; PULSE 83
[2024-10-26 15:30] VITALS: BP 154/83; PULSE 88; RESP 18; TEMP 36.8; O2SAT 100
[2024-10-26] MEDS: PRENATAL MULTIVITAMIN W/IRON 1 EACH PO (16:28)
[2024-10-26 19:43] VITALS: BP 150/79; PULSE 81; RESP 18; TEMP 37.1; O2SAT 98
[2024-10-26] MEDS: LABETALOL 100MG TABLET 100 MG PO (21:05)
[2024-10-26 22:10] VITALS: BP 119/83; PULSE 85
[2024-10-27] MEDS: ACETAMINOPHEN 500MG TAB 1000 MG PO (04:23)
[2024-10-27 04:45] VITALS: BP 129/80; PULSE 84; RESP 18; TEMP 36.7; O2SAT 98
[2024-10-27 09:00] VITALS: BP 148/74; PULSE 94; RESP 18; TEMP 36.6; O2SAT 99
[2024-10-27] MEDS: IBUPROFEN 400 MG TABLET 800 MG PO (09:02)
[2024-10-27] MEDS: LABETALOL 100MG TABLET 100 MG PO (09:03)
--- NOTE | 2024-10-27 10:01 | P.DS_ITS ---
General Admission date:: 10/25/24 Discharge date: 10/27/24 HPI HPI HPI: POD # 2 s/p RLTCS with BS Feeling well. Pain controlled. Formula feeding. Lochia is appropriate. Voiding without difficulty and passing flatus. Tolerating regular diet. Denies fever/chills, chest pain and shortness of breath. No headaches, vision changes, lightheadedness/dizziness. No lower extremity swelling. Ambulating well ad cecilia. Hospital Course Hospital Course Hospital Course: Ms Barbara Alcantara is a 23 yo at 37w0d who presents to [facility] for scheduled repeat secondary to preeclampsia. Mild range blood pressures with 24 hr urine protein 334. She is taking Labetalol 100 mg PO daily. She had late care, 28 weeks. complicated by maternal obesity and GDMA2. She was taking 10 units NPH at bedtime. History of stillbirth at 34 weeks. History of x 1 and preeclampsia and GDM in prior . She is complete with childbearing and desires permanent sterilization. She underwent repeat with bilateral salpingectomy on 10/25/24. She delivered a live female baby, Misty, weighing 8 lb 0z. APGARs 7 (1 min), 8 (5 min). EBL 500 mL. She did well /postoperatively. Pain controlled. Formula feeding. Light lochia. Voiding without difficulty and passing flatus. Tolerating regular diet. Denies fever/chills, chest pain and shortness of breath. No headaches, dizziness/lightheadedness or vision changes. Vital signs stable, afebrile. Heart regular rate and rhythm. Lungs clear to auscultation. Abdomen soft, nontender. No lower extremity swelling. Ambulating well ad cecilia. Normal hospital course. She was discharged to home on POD # 2 with instructions to follow-up in the office in 2 weeks or sooner if needed. Exam Data for Last 24 hours Vital signs and Labs for Last 24 Hours: Temp Pulse Resp BP Pulse Ox O2 Del Method 98.1 F 84 18 129/80 98 Room Air 10/27/24 04:45 10/27/24 04:45 10/27/24 04:45 10/27/24 04:45 10/27/24 04:45 10/27/24 04:45 I & O for Last 24 hours: Intake & Output 10/24/24 10/25/24 10/26/24 10/27/24 23:59 23:59 23:59 23:59 Intake Total 1999 / 1999 Output Total 600 / 600 Balance 1400 / 1400 Weight 300 lb 0.01 oz Microbiology Reports for the Last 24 Hours: Microbiology 10/25/24 05:50 Urine,Clean Catch Urine Culture - Final Multiple organisms, suggests contamination. Constitutional Constitutional: no acute distress, obese and cooperative *Routine HEENT Exam Head: Present normocephalic and atraumatic *Routine Neck Exam Neck: Present full ROM *Routine Respiratory Exam Respiratory: Present CTA bilaterally and normal respiratory effort *Routine Cardiovascular Exam Cardiovascular: Present RRR *Routine Abdominal Exam Abdominal: Present soft and normoactive bowel sounds; Absent tenderness Comments: Pfannenstiel incision clean/dry/intact with steri strips in place *Routine Rectal Exam Patient deferred: visual exam *Routine Exam Patient deferred: external exam *Routine Extremities Exam Extremities: Present full ROM; Absent edema or calf tenderness DS: Diagnosis Discharge Diagnosis (1) S/P : Status: Acute Code(s): Z98.891 - History of uterine scar from previous surgery (2) Pre-eclampsia in third trimester: Status: Acute Code(s): O14.93 - Unspecified pre-eclampsia, third trimester (3) Gestational diabetes mellitus (GDM) requiring insulin: Status: Acute Code(s): O24.414 - Gestational diabetes mellitus in , insulin controlled (4) Maternal obesity affecting , antepartum: Status: Acute Code(s): O99.210 - Obesity complicating , unspecified trimester Qualifiers: Obesity type affecting : unspecified obesity Qualified Code(s): O99.210 - Obesity complicating , unspecified trimester (5) History of : Status: Acute Code(s): Z98.891 - History of uterine scar from previous surgery (6) Use of nicotine during : Status: Acute Code(s): O99.330 - Smoking (tobacco) complicating , unspecified trimester (7) Marijuana use during : Status: Acute Code(s): O99.320 - Drug use complicating , unspecified trimester; F12.90 - Cannabis use, unspecified, uncomplicated (8) Late care affecting : Status: Acute Code(s): O09.30 - Supervision of with insufficient care, unspecified trimester Qualifiers: Trimester: third trimester Qualified Code(s): O09.33 - Supervision of with insufficient care, third trimester (9) Request for sterilization: Status: Acute Code(s): Z30.2 - Encounter for sterilization Meds Home Medications and Allergies Home Medications ?Medication ?Instructions ?Recorded ?Confirmed ?Type ibuprofen 800 mg tablet 800 mg PO Q8H PRN pain #20 tabs 10/27/24 Rx labetalol 100 mg tablet 100 mg PO BID #60 tabs 10/27/24 Rx oxycodone 5 mg tablet 5 mg PO Q4-6H PRN Moderate Pain 10/27/24 Rx (4-6) #12 tabs New Prescriptions to Start Prescriptions: ibuprofen Kathy Russell labetalol Drew,Kathy oxycodone Kathy Russell Allergies Allergy/AdvReac Type Severity Reaction Status Date / Time No Known Allergies Allergy Verified 10/25/24 05:16 Discharge Plan Disposition Patient Disposition: Home, Self-Care Condition: Good Discharge Order Discharge Orders: Discharge Order (Routine); Ordered 10/27/24 Ordered By: Kathy Russell Follow up Plan Follow up with: Kathy Russell DO [Staff Physician] - 11/09/24 10:15 am Prescriptions/Medication Reconciliation: New ibuprofen 800 mg tablet 800 mg PO Q8H PRN (Reason: pain) Qty: 20 0RF oxycodone 5 mg Tablet 5 mg PO Q4-6H PRN (Reason: Moderate Pain (4-6)) Qty: 12 0RF Changed labetalol 100 mg tablet 100 mg PO BID Qty: 60 0RF Discontinued Classic 28 mg iron- 800 mcg tablet 1 tab PO DAILY Qty: 30 11RF Novolin N NPH U-100 Insulin 100 unit/mL suspension 10 unit SQ HS Qty: 6 2RF (DME) blood-glucose meter [Accu-Chek Guide Glucose Meter] Misc See Rx Instructions .Route Qty: 1 0RF Rx Instructions: 4x daily (DME) Accu-Chek SmartView Test Strip Strip See Rx Instructions .Route Qty: 100 2RF Rx Instructions: 4x daily (DME) lancing device with lancets [Accu-Chek Soft Dev Lancets] Kit See Rx Instructions .Route Qty: 1 3RF Rx Instructions: 4x daily Problem Reconciliation Problems Reviewed?: Yes Patient Discharge Instructions ACTIVITY: Limited activity DIET: continue same diet and regular diet Additional Instructions: Nurse visit in Dr. Russell's office Friday10/29/24 @1:00pm Discharge: 1. Take 800 mg Ibuprofen every 8 hours as needed for pain. You can also take 500-1000 mg of Tylenol in between doses, every 6-8 hours. If pain persists you can take Oxycodone 5 mg, 1 tablet every 4-6 hours or more as needed. 2. Nothing in the vagina for 6 weeks - no intercourse, douching or tampons. No tub baths/hot tubs or swimming pools - Drink plenty of fluids. - No strenuous activity or driving until released by your doctor. - Don't lift anything heavier than your . 3. Reasons to return to L&D or call On-Call doctor - fever (greater than 100.4) - heavy vaginal bleeding (soaking through 1 pad in less than 2 hours) - vaginal discharge (malodorous and/or purulent) - severe headaches not resolved by medication or rest and leg tenderness/edema 4. depression/blues - Normal to feel anxious/overwhelmed for first 2 weeks - Talk to your doctor if: severe anxiety, trouble bonding with baby, withdrawing from other family members, thoughts of harming yourself or others Patient Instructions: Depression, Hemorrhage, DI for , DI for Pre-eclampsia, [facility] Post Discharge Instructions Print Language: Romanian Providers Primary Care Provider: Andrews De La Garza Admit Provider: Kathy Russell Attending Provider: Kathy Russell
--- NOTE | 2024-10-29 15:39 | SW/DCPLANNER ---
Infant cord screen is NEGATIVE.
== END 2024-10-27 10:56 | disposition home or self-care (01) | DRG 785 ==
PROVIDERS: Admitting Provider Obstetrics & Gynecology; PCP Internal Medicine; Visit Provider Obstetrics & Gynecology
PROC: 10D00Z1 Extraction of Products of Conception, Low, Open Approach (ICD-10-PCS; CPT 59514; principal; 2024-10-25 07:30)
DX: O14.94 Unspecified pre-eclampsia, complicating childbirth (principal); O24.424 Gestational diabetes mellitus in childbirth, insulin controlled; Z3A.37 37 weeks gestation of pregnancy; Z37.0 Single live birth; O34.211 Maternal care for low transverse scar from previous cesarean delivery; N85.8 Other specified noninflammatory disorders of uterus; O99.334 Smoking (tobacco) complicating childbirth; F17.290 Nicotine dependence, other tobacco product, uncomplicated; Z30.2 Encounter for sterilization; Z79.899 Other long term (current) drug therapy; O99.214 Obesity complicating childbirth; E66.01 Morbid (severe) obesity due to excess calories; O33.9 Maternal care for disproportion, unspecified
CPT/HCPCS: 36415; 59025; 80048; 80307; 81001; 82962; 85007; 85025; 86592; 86850; 87086; 94761; G0283; J0666; J1885; J2175; J2405; J3010; J7120